=== PATIENT | male | born 1930 | race Caucasian/White ===

== ENCOUNTER 2016-10-07 11:46 | Inpatient (IN) | payer MEDICARE, OTHER ==
--- NOTE | 2016-10-07 14:06 | P.HPIM ---
History of Present Illness H&P Date: 10/07/16 Chief Complaint: Shortness of breath This is a 86-year-old male with a known past medical history of CVA, hypertension, chronic kidney disease, spinal stenosis, hyperlipidemia, hypothyroidism and BPH. Patient is a direct admit from Dr. Montenegro's office. Patient reports having worsening shortness of breath over the last 3 weeks. He noticed the shortness of breath with activity. He's also been having shortness of breath at rest. He reports that he is able to lay flat on his back. Also has episodes of chest pain in the center of his chest that lasts for a few minutes. The pain does not radiate. Patient reports that the chest pains and shortness of breath appeared to be separate. He denies any nausea or vomiting. Denies any diaphoresis. Denies any bowel movement changes or urinary symptoms. Denies any fevers chills or sweats. Denies any cough or cold-like symptoms. Due to the worsening shortness of breath and episodes of chest pains patient was admitted to the hospital for further evaluation and treatment. Chest x-ray, EKG, serial cardiac enzymes, d-dimer and BNP have been ordered. Patient denies any previous history of any congestive heart failure or COPD. Patient has no previous history of smoking. Denies any lower extremity edema. Patient is been currently admitted to the observation floor Review of Systems Please refer to HPI otherwise unremarkable Past Medical History Past Medical History: GERD/Reflux, Hearing Disorder / Deafness, Hypertension, Thyroid Disorder Additional Past Medical History / Comment(s): Chronic back pain with history of spinal stenosis, hyperlipidemia, hypothyroidism, BPH and CVA. Left rib contusion after fall from ladder about 3 months ago History of Any Multi-Drug Resistant Organisms: None Reported Past Surgical History: No Surgical Hx Reported Past Psychological History: No Psychological Hx Reported Smoking Status: Never smoker Past Alcohol Use History: Occasional Past Drug Use History: None Reported Medications and Allergies Home Medications Medication Instructions Recorded Confirmed Type Amitriptyline HCl [Elavil] 25 mg PO DAILY 01/31/14 01/31/14 History Aspirin 325 mg PO DAILY 01/31/14 02/03/14 History Atenolol [Tenormin] 25 mg PO DAILY 01/31/14 01/31/14 History Levothyroxine Sodium [Levoxyl] 25 mcg PO DAILY 01/31/14 01/31/14 History [place]-3 Fatty Acids [Riverdale-3] 1,000 mg PO DAILY 01/31/14 01/31/14 History Omeprazole 40 mg PO AC-BRKFST 01/31/14 01/31/14 History rOPINIRole HCL [Requip] 0.25 mg PO Q6H 01/31/14 02/01/14 History Allergies Allergy/AdvReac Type Severity Reaction Status Date / Time Sulfa (Sulfonamide Allergy Unknown Verified 01/31/14 21:06 Antibiotics) Physical Exam Head normocephalic Neck supple Lungs crackles left lower base Heart regular rate and rhythm S1-S2, no rub or gallop Abdomen is soft nontender nondistended positive bowel sounds no hepatosplenomegaly Extremities no edema Neuro alert and orientated to 3 Assessment and Plan Plan: 1. Shortness of breath exact etiology unclear. Check chest x-ray, d-dimer, BNP and cardiac enzymes. Start patient on Lovenox every 12 hours 2. Intermittent chest pains check serial troponin and EKG 3. Previous history of stroke continue aspirin and Plavix 4. Hypothyroidism resume her Synthroid 5. History of GERD we'll resume omeprazole 6. History of restless leg syndrome resume Requip 7. Essential hypertension resume Tenormin GI prophylaxis omeprazole and DVT prophylaxis Lovenox Time with Patient: Greater than 30 (Greater than 50% of the total time spent in counseling and coordination of care.I performed an examination of the patient and discussed their management with the physician Manager Hvac. I have reviewed the Physician Manager Hvac's notes and agree with the documented findings and plan of care)
--- NOTE | 2016-10-07 14:26 | XR ---
EXAMINATION TYPE: XR chest 2V DATE OF EXAM: 10/07/2016 2:18 PM COMPARISON: NONE HISTORY: Shortness of breath TECHNIQUE: Frontal and lateral views of the chest are obtained. FINDINGS: Scattered senescent parenchymal changes noted. Hyperinflation compatible with COPD. No evidence for infiltrate. No evidence for atelectasis. Heart size is enlarged. Mediastinal structures are stable and grossly unremarkable. No evidence for hilar prominence. Degenerative changes dorsal spine. IMPRESSION: 1. No evidence for acute pulmonary disease.
[2016-10-07 14:59] LABS: Basophils % (A) 0 %; CH 29.9; CHCM 32.6; Eosinophils % (A) 1 %; HCT 40.4 % (39.0-53.0); HDW 2.95; HGB 12.9 gm/dL (13.0-17.5); Luc # (Auto) 0.09; Luc % (Auto) 2; Lymphocytes % (A) 22 %; MCH 29.4 pg (25.0-35.0); MCHC 31.9 g/dL (31.0-37.0); Monocytes # (A) 0.2 k/uL (0-1.0); Monocytes % (A) 4 %; Neutrophils # (A) 3.4 k/uL (1.3-7.7); Neutrophils % (A) 71 %; RBC 4.39 m/uL (4.30-5.90); RDW 13.9 % (11.5-15.5); WBC 4.8 k/uL (3.8-10.6); WBC (Perox) 5.19
[2016-10-07 15:07] LABS: Calcium 9.4 mg/dL (8.4-10.2); Potassium 4.1 mmol/L (3.5-5.1); Total Bilirubin 1.3 mg/dL (0.2-1.3); Total Protein 6.7 g/dL (6.3-8.2)
[2016-10-07 16:40] LABS: Creatine Kinase MB 2.1 ng/mL (0.0-2.4); Troponin I 0.014 ng/mL (0.000-0.034)
[2016-10-07] MEDS: ENOXAPARIN 80 MG/0.8 ML SYRINGE SQ SCH ×2 (18:54→23:07)
[2016-10-07] MEDS: ATORVASTATIN 10 MG TAB PO SCH ×2 (19:33→20:25)
[2016-10-07 20:23] LABS: Creatine Kinase MB 1.7 ng/mL (0.0-2.4); Troponin I 0.02 ng/mL (0.000-0.034)
[2016-10-07] MEDS ORDERED: rOPINIRole HCL 4 MG TABLET PO ONE (23:00)
[2016-10-08 02:34] LABS: Basophils % (A) 0 %; CHCM 33.3; Eosinophils # (A) 0.1 k/uL (0-0.7); Eosinophils % (A) 1 %; HCT 36.8 % (39.0-53.0); HDW 2.99; HGB 11.9 gm/dL (13.0-17.5); Luc # (Auto) 0.08; Luc % (Auto) 2; Lymphocytes # (A) 1.2 k/uL (1.0-4.8); Lymphocytes % (A) 30 %; MCH 29.2 pg (25.0-35.0); MCHC 32.4 g/dL (31.0-37.0); MCV 90.4 fL (80.0-100.0); Mean Platelet Volume 8.9; Monocytes # (A) 0.3 k/uL (0-1.0); Monocytes % (A) 7 %; Neutrophils # (A) 2.3 k/uL (1.3-7.7); Neutrophils % (A) 59 %; RBC 4.07 m/uL (4.30-5.90); WBC 3.8 k/uL (3.8-10.6); WBC (Perox) 3.77
[2016-10-08 02:39] LABS: Potassium 4.1 mmol/L (3.5-5.1); Total Bilirubin 1.1 mg/dL (0.2-1.3); Total Protein 5.8 g/dL (6.3-8.2)
[2016-10-08 03:09] LABS: Creatine Kinase MB 1.9 ng/mL (0.0-2.4); Troponin I 0.015 ng/mL (0.000-0.034)
--- NOTE | 2016-10-08 08:31 | NM ---
EXAMINATION TYPE: NM pul vent and perfuse DATE OF EXAM: 10/07/2016 5:53 PM COMPARISON: NONE HISTORY: Shortness of breath. TECHNIQUE: Utilizing inhalation of 69.6 mCi Tc 99m DTPA aerosol and intravenous injection of 5.4 mCi of Tc 99m MAA, ventilation and perfusion images are acquired post injection in multiple projections. FINDINGS: Multiple non-wedge, nonsegmental matched defects are seen within both lungs, predominating within the mid upper lungs most compatible with underlying COPD. No mismatched defects are seen to suggest unde rlying pulmonary embolus. IMPRESSION: 1. Very low probability for PE. 2. Findings most compatible with COPD.
[2016-10-08] MEDS: ENOXAPARIN 80 MG/0.8 ML SYRINGE SQ SCH (08:46)
[2016-10-08] MEDS: PANTOPRAZOLE 40 MG TABLET PO SCH (08:47)
[2016-10-08] MEDS: CHOLECALCIFEROL 1,000 UNIT TAB PO SCH (08:47)
[2016-10-08] MEDS: AMITRIPTYLINE HCL 25 MG TAB PO SCH (08:47)
[2016-10-08] MEDS ORDERED: ATENOLOL 50 MG TAB PO SCH (09:00)
[2016-10-08] MEDS ORDERED: ASPIRIN 325 MG TAB PO SCH (09:00)
--- NOTE | 2016-10-08 10:06 | ECHOF ---
Referral Reason:check EF MEASUREMENTS -------- HEIGHT: 152.4 cm WEIGHT: 76.2 kg BP: 150/76 IVSd: 1.3 cm (0.6 - 1.1) LVIDd: 6.0 cm (3.9 - 5.3) LVPWd: 1.5 cm (0.6 - 1.1) IVSs: 1.4 cm LVIDs: 5.6 cm LVPWs: 1.4 cm LAESV Index (A-L): 42.25 ml/m Ao Diam: 3.7 cm (2.0 - 3.7) AV Cusp: 2.3 cm (1.5 - 2.6) LA Diam: 5.2 cm (2.7 - 3.8) MV EXCURSION: 14.837 mm (> 18.000) MV EF SLOPE: 73 mm/s (70 - 150) EPSS: 3.5 cm MV E Rob: 0.45 m/s MV DecT: 169 ms MV A Rob: 0.58 m/s MV E/A Ratio: 0.78 AR PHT: 450 ms RAP: 5.00 mmHg RVSP: 53.70 mmHg FINDINGS -------- Undetermined rhythm. This was a technically good study. The left ventricle is moderately dilated. Left ventricular wall thickness is normal. There is severe global hypokinesis of LV . Overall left ventricular systolic function is severely impaired with, an EF between 20 - 25 %. The right ventricle is normal in size. LA is severely dilated >40 ml/m2 The right atrial size is normal. There is mild aortic valve sclerosis. There is mild aortic regurgitation. Mild mitral annular calcification present. Moderate mitral regurgitation is present. Mild tricuspid regurgitation present. There is mild to moderate pulmonary hypertension. The right ventricular systolic pressure, as measured by Doppler, is 53.70mmHg. Trace/mild (physiologic) pulmonic regurgitation. The aortic root size is normal. There is no pericardial effusion. CONCLUSIONS -------- 1. The left ventricle is moderately dilated. 2. Mild tricuspid regurgitation present. 3. There is mild to moderate pulmonary hypertension. 4. The right ventricular systolic pressure, as measured by Doppler, is 53.70mmHg. 5. Trace/mild (physiologic) pulmonic regurgitation. 6. The aortic root size is normal. 7. There is no pericardial effusion. 8. Left ventricular wall thickness is normal. 9. There is severe global hypokinesis of LV . 10. Overall left ventricular systolic function is severely impaired with, an EF between 20 - 25 %. 11. LA is severely dilated >40 ml/m2 12. There is mild aortic valve sclerosis. 13. There is mild aortic regurgitation. 14. Mild mitral annular calcification present. 15. Moderate mitral regurgitation is present. STUDIO ENGINEER: Maryse Najera RDCS
[2016-10-08] MEDS ORDERED: REGADENOSON 0.4 MG/5 ML SYRINGE IV ONE (10:49)
[2016-10-08] MEDS ORDERED: AMINOPHYLLINE 500 MG/20 ML VIAL IV PRN (10:49)
[2016-10-08] MEDS ORDERED: NITROGLYCERIN SL TABS 0.4 MG TAB SUBLINGUAL PRN ×2 (11:22→13:12)
[2016-10-08] MEDS ORDERED: ASPIRIN 325 MG TAB PO STA (11:22)
[2016-10-08] MEDS ORDERED: ALPRAZolam 0.5 MG TAB PO PRN (11:22)
[2016-10-08] MEDS ORDERED: SODIUM CHLORIDE 0.9% 1,000 ML in EMPTY BAG 1 BAG IV ONE (11:22)
[2016-10-08] MEDS ORDERED: ATORVASTATIN 80 MG TAB PO STA (11:22)
[2016-10-08] MEDS ORDERED: ALPRAZolam 0.25 MG TAB PO PRN (11:22)
--- NOTE | 2016-10-08 11:24 | CONS ---
DATE OF CONSULTATION: Mr. Henning is an 86-year-old male patient who has been complaining of increased shortness of breath for the last 3 weeks or so. He does not describe any chest discomfort. He says that he gets short of breath when he walks around. His hemoglobin is 11.9. Electrolytes are normal. Kidney function is mildly reduced. His GFR is 45, creatinine is 1.5 and cardiac enzymes have been normal, but his BNP is elevated. He underwent a 2-D echo and Doppler today and it shows that his LV function is severely reduced with an ejection fraction of 20% to 25%. He underwent a perfusion imaging scan which showed low probability for pulmonary embolism. Past history of CVA, hypertension, chronic kidney disease, spinal stenosis, dyslipidemia and BPH. His medications include amitriptyline, aspirin, Tenormin, levothyroxine, omega-3 fatty acids, omeprazole and ropinirole. Allergies to SULFA. REVIEW OF SYSTEMS: No fever, chills, rigors. No cough or expectoration. No nausea, vomiting, or diarrhea. No hematuria or dysuria. No strokes or seizures. No skin lesions. No musculoskeletal complaints. On examination, his blood pressure is 185/87 mmHg, 150/76 mmHg, his heart rate is in the 50s and he is afebrile. Head and neck examination normal. No JVD, carotid bruits. Heart sounds S1 and S2 are normal. Lungs are clear to auscultation. Extremities are warm. No edema. No S3 gallop. No murmurs. IMPRESSION: Increasing shortness of breath for the last 3 weeks associated with increased BNP, severe left ventricular dysfunction, ejection fraction 20% to 25%, frequent premature ventricular contractions on 12-lead ECG with ST segment abnormalities. One ECG shows ST segment abnormalities in lead 4, 5 and V6, the other one does not. He does have chronic kidney disease, GFR 45 and a history of hypertension. SUGGEST: Medical management for cardiomyopathy and work up for coronary artery disease. Check TSH and a lipid panel.
[2016-10-08] MEDS ORDERED: LIDOCAINE 2% INJ 20 MG/ML (20 ML MDV) ONE (11:42)
[2016-10-08] MEDS ORDERED: MIDAZOLAM 2 MG/2 ML VIAL ONE (12:10)
[2016-10-08] MEDS ORDERED: diphenhydrAMINE 50 MG/ML 1 ML VIAL ONE (12:10)
[2016-10-08] MEDS ORDERED: diphenhydrAMINE 50 MG/ML 1 ML VIAL IVP ONE (12:12)
[2016-10-08] MEDS: MIDAZOLAM 2 MG/2 ML VIAL IV ONE ×2 (12:13→12:20)
[2016-10-08] MEDS ORDERED: LIDOCAINE 2% INJ 20 MG/ML SQ ONE (12:14)
[2016-10-08] MEDS: SODIUM CHLORIDE 0.9% 1,000 ML IV SCH (12:15)
[2016-10-08] MEDS ORDERED: NITROGLYCERIN OINT 1 INCH/GM PACKET TOPICAL ONE ×2 (12:19→12:21)
[2016-10-08] MEDS ORDERED: amLODIPine 5 MG TAB ONE (12:24)
[2016-10-08] MEDS ORDERED: amLODIPine 5 MG TAB PO ONE (12:26)
[2016-10-08] MEDS ORDERED: BIVALIRUDIN 250 MG in SODIUM CHLORIDE 0.9% 50 ML IV ONE (12:42)
[2016-10-08] MEDS ORDERED: BIVALIRUDIN BOLUS 250 MG/50 ML IV ONE (12:42)
[2016-10-08] MEDS ORDERED: CLOPIDOGREL 75 MG TAB ONE (12:43)
[2016-10-08] MEDS ORDERED: NITROGLYCERIN 1000MCG/10ML SYRINGE INTRACORON ONE (12:52)
[2016-10-08] MEDS ORDERED: CLOPIDOGREL 75 MG TAB PO ONE (12:52)
--- NOTE | 2016-10-08 12:56 | CC ---
DATE OF SERVICE: INDICATION: Unstable angina. This is an 86-year-old gentleman who presented to hospital with new onset shortness of breath at 3 weeks duration, had cardiomyopathy on the echocardiogram. He was advised to undergo cardiac catheterization, has renal insufficiency, understands the risk of contrast-induced nephropathy. PROCEDURE NOTE: After obtaining informed consent, left heart catheterization and coronary angiogram are performed via the right femoral artery using standard Pranay catheters. Patient tolerated the procedure well without any obvious immediate complications. FINDINGS: 1. HEMODYNAMICS: Left ventricular end-diastolic pressure is 24 mm. There is no significant gradient across the aortic valve. 2. LEFT VENTRICULOGRAM: Left ventriculogram is not performed. 3. ANGIOGRAPHIC DATA: LEFT MAIN CORONARY ARTERY: Left main coronary artery is a normal size vessel and is free of stenosis. It divides into left anterior descending coronary artery and circumflex coronary artery. Circumflex coronary artery and its branches are free of significant stenosis. LEFT ANTERIOR DESCENDING CORONARY ARTERY: LAD show a 95% stenosis in its mid-portion. There are actually segmental areas of stenosis, one past the first diag and second just before the second diag and the worst lesion is just before the second diag. Right coronary artery is a large dominant vessel and is free of significant stenosis. CONCLUSIONS: A 95% stenosis involving mid left anterior descending artery. PLAN: Patient will undergo angioplasty of LAD by Dr. Justin the on-call fleet maintenance manager.
[2016-10-08] MEDS ORDERED: IODIXANOL 320 MG/ML 100 ML INTRAARTER ONE (13:09)
[2016-10-08] MEDS ORDERED: ZOLPIDEM 5 MG TAB PO PRN (13:12)
[2016-10-08] MEDS ORDERED: MAG HYDROX/AL HYDROX/SIMETH 30 ML CUP PO PRN (13:12)
[2016-10-08] MEDS ORDERED: ATROPINE SULFATE 0.1 MG/ML 10ML SYRINGE IV PRN (13:12)
[2016-10-08] MEDS ORDERED: RX INFO: IV CONTRAST WAS GIVEN 1 EACH MISC MISCELLANE PRN (13:12)
[2016-10-08] MEDS ORDERED: SODIUM CHLORIDE 0.9% 1,000 ML IV SCH (13:15)
[2016-10-08] MEDS: hydrALAZINE HCL 25 MG TAB PO SCH ×2 (16:45→20:08)
[2016-10-08] MEDS: ISOSORBIDE MONONITRATE ER 30 MG TAB.ER.24H PO SCH (16:45)
[2016-10-08 17:17] LABS: Glucose,Whole Blood 89 mg/dL (75-99)
[2016-10-08] MEDS ORDERED: CARVEDILOL 3.125 MG TAB PO SCH (17:30)
[2016-10-08] MEDS: CARVEDILOL 6.25 MG TAB PO SCH (18:23)
--- NOTE | 2016-10-08 19:09 | P.PN ---
Subjective Principal diagnosis: Coronary Artery disease Patient is an 86 year old male admitted to [facility] with worsening shortness of breath D-dimer was slightly elevated, VQ scan was low probability for pulmonary embolism Cardiac enzymes were negative However echocardiogram revealed severely depressed ejection fraction was evidence of cardiomyopathy EF was in the range of 20% Patient was evaluated by cardiology and had cardiac catheterization today and had evidence of 95% stenosis of the LAD he underwent angioplasty and stent placement was Dr. Justin agent is doing well postoperatively. Objective - Vital Signs Vital signs: Vital Signs Temp 98.6 F 10/08/16 16:57 Pulse 67 10/08/16 16:57 Resp 16 10/08/16 16:57 BP 140/67 10/08/16 16:57 Pulse Ox 96 10/08/16 16:57 Intake & Output 10/08/16 10/08/16 10/09/16 06:59 18:59 06:59 Intake Total 250 208 Output Total 0 Balance 250 208 Weight 76.6 kg Intake: IV 88 Oral 250 120 Output: Urine 0 Other: Voiding Method Toilet Toilet # Voids 3 0 # Bowel Movements 0 - Exam HEENT head normocephalic and atraumatic Neck is supple no JVD no goiter no lymphadenopathy Chest is clear to auscultation no wheezing Cardiac exam reveals regular heart sounds no murmurs Abdomen is soft nontender no organomegaly Extremity exam reveals no edema no cyanosis or clubbing - Labs CBC & Chem 7: 10/08/16 02:13 10/08/16 02:13 Labs: Abnormal Lab Results - Last 24 Hours (Table) 10/07/16 10/08/16 10/08/16 Range/Units 19:32 02:13 02:13 RBC 4.07 L (4.30-5.90) m/uL Hgb 11.9 L (13.0-17.5) gm/dL Hct 36.8 L (39.0-53.0) % Plt Count 104 L (150-450) k/uL Chloride 109 H (98-107) mmol/L BUN 34 H (9-20) mg/dL Creatinine 1.50 H (0.66-1.25) mg/dL Glucose 102 H (74-99) mg/dL Total Creatine Kinase 42 L (55-170) U/L Total Protein 5.8 L (6.3-8.2) g/dL Albumin 3.2 L (3.5-5.0) g/dL 10/08/16 Range/Units 02:13 RBC (4.30-5.90) m/uL Hgb (13.0-17.5) gm/dL Hct (39.0-53.0) % Plt Count (150-450) k/uL Chloride (98-107) mmol/L BUN (9-20) mg/dL Creatinine (0.66-1.25) mg/dL Glucose (74-99) mg/dL Total Creatine Kinase 36 L (55-170) U/L Total Protein (6.3-8.2) g/dL Albumin (3.5-5.0) g/dL Assessment and Plan Plan: #1 coronary artery disease with evidence of 95% stenosis of the LAD status post angioplasty and stent placement #2 chronic kidney disease Will monitor BUN and creatinine closely #3 will follow during this admission
[2016-10-08] MEDS: ATORVASTATIN 80 MG TAB PO SCH (20:08)
[2016-10-08] MEDS ORDERED: ATORVASTATIN 40 MG TAB PO SCH (21:00)
--- NOTE | 2016-10-08 22:10 | PTCA ---
DATE OF SERVICE: Mr. Henning is an 86-year-old male with a history of hypertension and chronic kidney disease who presented with symptoms of progressive dyspnea and chest discomfort. He had an echocardiogram that revealed severely impaired left ventricular systolic function and underwent a cardiac catheterization that revealed a critical stenosis in 2 segments of the LAD. In view of that, recommendation was made regarding angioplasty and stenting. The procedure as well as risks and complications were discussed with the patient, who was in full understanding and agreement. PROCEDURE: Using a 6 Belgian EBU 3.75 guiding catheter, the left main was cannulated. Following that, a 0.014 balanced medium-weight J wire was advanced across the lesion, positioned distally. Then a 2.5 x 12 mm Trek balloon was advanced and 2 inflations at 8 atmospheres were done. Following that balloon was removed and a 2.5 x 33 mm Xience Alpine stent was deployed. It was post dilated at 14 atmospheres. Following that the balloon was removed and a 2.75 x 15 mm NC Trek balloon was advanced to the proximal segment of the stent, and 1 inflation at 14 atmospheres was done. After the last inflation, after appropriate wait, the balloon and the guidewire were withdrawn back into the guiding catheter. Images were obtained and repeated. Those images revealed stable successful stenting. At that point, the guiding catheter, the balloon and the guidewire were removed. The sheath was removed. Hemostasis was obtained with deployment of an Angio-Seal. There were no immediate complications. Patient was returned to his room in stable condition. Of note, patient had no chest discomfort or significant EKG changes with the inflations. He received Angiomax per protocol as well as oral loading dose of clopidogrel. RESULT: Successful stenting of the long segment of the mid left anterior descending with reduction in stenosis from 90% to 0%. RECOMMENDATION: Patient will be continued on aspirin, Plavix, beta kevon and statin. The importance of dual antiplatelet treatment was discussed with the patient and his family, who are in full understanding and agreement.
--- NOTE | 2016-10-08 22:18 | LTR ---
October 08, 2016 RE: JuvencioKaleb Dear Dr. Montenegro, I had the pleasure of performing coronary angioplasty and stenting on Mr. Henning at [facility] on October 08, and a full copy of the procedure note will be forwarded to you. In brief, he underwent successful stenting of the mid LAD in a long segment using a drug-eluting stent. I am hopeful that this procedure will stabilize his status and that we will see an improvement in his systolic function. I will keep you updated on his progress. Thank you again for allowing me to participate in his care. Please feel to call with any questions. Sincerely, CHARISMA BORRERO MD
[2016-10-09 06:21] LABS: Basophils % (A) 0 %; CH 29.9; CHCM 32.8; Eosinophils # (A) 0.1 k/uL (0-0.7); Eosinophils % (A) 1 %; HCT 42.8 % (39.0-53.0); HGB 13.8 gm/dL (13.0-17.5); Luc # (Auto) 0.09; Luc % (Auto) 2; Lymphocytes # (A) 0.9 k/uL (1.0-4.8); Lymphocytes % (A) 17 %; MCH 29.5 pg (25.0-35.0); MCHC 32.3 g/dL (31.0-37.0); MCV 91.5 fL (80.0-100.0); Mean Platelet Volume 8.3; Monocytes # (A) 0.3 k/uL (0-1.0); Monocytes % (A) 6 %; Neutrophils # (A) 3.8 k/uL (1.3-7.7); Neutrophils % (A) 74 %; RBC 4.68 m/uL (4.30-5.90); RDW 13.8 % (11.5-15.5); WBC 5.2 k/uL (3.8-10.6); WBC (Perox) 5.71
[2016-10-09] MEDS: PANTOPRAZOLE 40 MG TABLET PO SCH (06:39)
[2016-10-09] MEDS: CARVEDILOL 6.25 MG TAB PO SCH ×2 (06:40→17:32)
[2016-10-09] MEDS: SODIUM CHLORIDE 0.9% 1,000 ML IV SCH (06:41)
[2016-10-09 07:05] LABS: Calcium 9.2 mg/dL (8.4-10.2); Potassium 4.1 mmol/L (3.5-5.1); Total Bilirubin 2.4 mg/dL (0.2-1.3); Total Protein 6.8 g/dL (6.3-8.2)
[2016-10-09] MEDS: ISOSORBIDE MONONITRATE ER 30 MG TAB.ER.24H PO SCH (08:58)
[2016-10-09] MEDS: ASPIRIN 81 MG CHEW PO SCH (08:58)
[2016-10-09] MEDS: hydrALAZINE HCL 25 MG TAB PO SCH ×2 (08:59→20:27)
[2016-10-09] MEDS: CHOLECALCIFEROL 1,000 UNIT TAB PO SCH (08:59)
[2016-10-09] MEDS: AMITRIPTYLINE HCL 25 MG TAB PO SCH (08:59)
[2016-10-09] MEDS: CLOPIDOGREL 75 MG TAB PO SCH (08:59)
--- NOTE | 2016-10-09 13:51 | P.PN ---
Subjective Principal diagnosis: Coronary Artery disease Patient is an 86 year old male admitted to [facility] with worsening shortness of breath D-dimer was slightly elevated, VQ scan was low probability for pulmonary embolism Cardiac enzymes were negative However echocardiogram revealed severely depressed ejection fraction was evidence of cardiomyopathy EF was in the range of 20% Patient was evaluated by cardiology and had cardiac catheterization today and had evidence of 95% stenosis of the LAD he underwent angioplasty and stent placement was Dr. Justin agent is doing well postoperatively. Objective - Vital Signs Vital signs: Vital Signs Temp 97.0 F L 10/09/16 08:00 Pulse 62 10/09/16 08:00 Resp 16 10/09/16 08:00 BP 138/72 10/09/16 08:00 Pulse Ox 97 10/09/16 08:00 Intake & Output 10/08/16 10/09/16 10/09/16 18:59 06:59 18:59 Intake Total 089 944 8419 Output Total 0 200 Balance 208 -80 1066 Weight 76.6 kg 76.6 kg Intake: IV 88 Intake, IV Titration 150 Amount Sodium Chloride 0.9% 1, 150 000 ml @ 75 mls/hr IV . [id number] [facility] Rx#:[id number] Oral 120 120 916 Output: Urine 0 200 Other: Voiding Method Toilet Toilet Toilet # Voids 0 1 # Bowel Movements 0 0 - Exam HEENT head normocephalic and atraumatic Neck is supple no JVD no goiter no lymphadenopathy Chest is clear to auscultation no wheezing Cardiac exam reveals regular heart sounds no murmurs Abdomen is soft nontender no organomegaly Extremity exam reveals no edema no cyanosis or clubbing - Labs CBC & Chem 7: 10/09/16 05:36 10/09/16 05:36 Labs: Abnormal Lab Results - Last 24 Hours (Table) 10/09/16 10/09/16 Range/Units 05:36 05:36 Plt Count 124 L (150-450) k/uL Lymphocytes # 0.9 L (1.0-4.8) k/uL BUN 27 H (9-20) mg/dL Creatinine 1.40 H (0.66-1.25) mg/dL Glucose 114 H (74-99) mg/dL Total Bilirubin 2.4 H (0.2-1.3) mg/dL Assessment and Plan Plan: #1 coronary artery disease with evidence of 95% stenosis of the LAD status post angioplasty and stent placement #2 chronic kidney disease Will monitor BUN and creatinine closely #3 will follow during this admission, as discussed was cardiology, plan for discharge to home on Friday per cardiology recommendation
--- NOTE | 2016-10-09 14:21 | P.PN ---
Subjective Principal diagnosis: Shortness of breath This is a pleasant 86-year-old gentleman primarily admitted to the hospital with symptoms of shortness of breath for 3 week duration. He denied any overt chest discomfort. Patient had an echo cardiac exam with Doppler study performed which revealed any LV function of 20-25%. Subsequent to that patient underwent a cardiac catheterization where he was found to have a 95% stenosis involving the mid LAD. Subsequent to that he underwent angioplasty with stent placement of that vessel. He was seen and examined this morning, denied any chest pain, breathing was stable. I pressure 138/70, heart rate in the 60s. Hemoglobin 13.8, platelet count 124, BUN 27, creatinine 1.4. We will add losartan to the patient's medication regime today. Continue to monitor for 48 hours. Objective - Vital Signs Vital signs: Vital Signs Temp 97.0 F L 10/09/16 08:00 Pulse 62 10/09/16 08:00 Resp 16 10/09/16 08:00 BP 138/72 10/09/16 08:00 Pulse Ox 97 10/09/16 08:00 Intake & Output 10/08/16 10/09/16 10/09/16 18:59 06:59 18:59 Intake Total 615 119 3624 Output Total 0 200 Balance 208 -80 1066 Weight 76.6 kg 76.6 kg Intake: IV 88 Intake, IV Titration 150 Amount Sodium Chloride 0.9% 1, 150 000 ml @ 75 mls/hr IV . [id number] [facility] Rx#:[id number] Oral 120 120 916 Output: Urine 0 200 Other: Voiding Method Toilet Toilet Toilet # Voids 0 1 # Bowel Movements 0 0 - Exam PHYSICAL EXAMINATION: HEENT: Head is atraumatic, normocephalic. Pupils equal, round. Neck is supple. There is no elevated jugular venous pressure. HEART EXAMINATION: Heart S1, S2 normal. No murmur or gallop heard. CHEST EXAMINATION: Lungs are clear to auscultation and precussion. No chest wall tenderness is noted on palpation or with deep breathing. ABDOMEN: Soft, nontender. Bowel sounds are heard. No organomegaly noted. Right groin soft, no evidence of any hematoma. EXTREMITIES: 2+ peripheral pulses with no evidence of peripheral edema and no calf tenderness noted. NEUROLOGIC patient is awake, alert and oriented -3. . - Labs CBC & Chem 7: 10/09/16 05:36 10/09/16 05:36 Labs: Abnormal Lab Results - Last 24 Hours (Table) 10/09/16 10/09/16 Range/Units 05:36 05:36 Plt Count 124 L (150-450) k/uL Lymphocytes # 0.9 L (1.0-4.8) k/uL BUN 27 H (9-20) mg/dL Creatinine 1.40 H (0.66-1.25) mg/dL Glucose 114 H (74-99) mg/dL Total Bilirubin 2.4 H (0.2-1.3) mg/dL Assessment and Plan (1) SOB (shortness of breath) Status: Acute (2) Presence of stent in LAD coronary artery Status: Acute (3) Renal insufficiency Status: Acute (4) Ischemic cardiomyopathy Status: Acute (5) Hyperlipemia Status: Acute (6) HTN (hypertension) Status: Acute Plan: From cardiology's perspective, we'll continue current medications. We will also add losartan to the medication regime. Continue to monitor for 48 hours. Increase activity as tolerated. DNP note has been reviewed, I agree with a documented findings and plan of care. Patient was seen and examined.
--- NOTE | 2016-10-09 14:37 | CDI ---
In responding to this query, please exercise your independent professional judgment. The [facility] Coding Staff and Clinical Documentation Specialists appreciate your assistance in clarifying documentation, maintaining compliance with coding guidelines, accurately documenting patients condition and capturing severity of illness. The fact that a question is asked does not imply that any particular answer is desired or expected. Communication forms are a method of clarifying documentation and are not made part of the Legal Health Record. Thank you in advance for your clarification. Last Revision, July 2015 Umang Levin [address] [place] [address] Documentation Clarification Form Date: 10/09/2016 2:29:00 PM From: Dina Blancas CCS, CCDS Admit Date: 10/08/2016 11:08:00 AM Patient Name: Kaleb Henning Visit Number: [id number] Discharge Date: Dr. Donnie Montenegro: History/Risk Factors: 86 yo male, admitted w/CAD status post Left Heart Catheterization & PTCA w/stent to mid LAD, also history of cardiomyopathy, hypertension & documented CKD, nos. Current BUN: 33 - 27; Cr 1.60 - 1.40; GFR 41 - 48 Treatment: Cardiology consult & cardiac intervention. IV fluids, Lovenox sc, Aspirin, Nitro sl. In order to capture the severity of condition, please clarify if the condition signifies: CKD Stage 1 (GFR > 90) CKD Stage 2 (GFR 60-89) CKD Stage 3 (GFR 30-59) CKD Stage 4 (GFR 15-29) CKD Stage 5 (GFR <15) ESRD Unable to determine Other condition, please specify Please document in your progress notes and discharge summary in order to capture severity of illness and risk of mortality. Include clinical findings that support your diagnosis. FYI: Press F11 to launch patient chart. Place X here if this finding has no clinical significance, is not applicable or if you are not able to provide any additional documentation. Thank You. RIKA
[2016-10-09] MEDS: ATORVASTATIN 80 MG TAB PO SCH (20:27)
[2016-10-10 06:37] LABS: Basophils % (A) 0 %; CHCM 33.3; Eosinophils # (A) 0.1 k/uL (0-0.7); Eosinophils % (A) 2 %; HCT 37.9 % (39.0-53.0); HDW 2.98; HGB 12.4 gm/dL (13.0-17.5); Luc # (Auto) 0.08; Luc % (Auto) 2; Lymphocytes % (A) 22 %; MCH 29.8 pg (25.0-35.0); MCHC 32.8 g/dL (31.0-37.0); MCV 90.6 fL (80.0-100.0); Mean Platelet Volume 8.3; Monocytes # (A) 0.3 k/uL (0-1.0); Monocytes % (A) 6 %; Neutrophils # (A) 3.1 k/uL (1.3-7.7); Neutrophils % (A) 69 %; RBC 4.18 m/uL (4.30-5.90); RDW 13.9 % (11.5-15.5); WBC 4.5 k/uL (3.8-10.6); WBC (Perox) 4.79
[2016-10-10] MEDS: PANTOPRAZOLE 40 MG TABLET PO SCH (06:43)
[2016-10-10] MEDS: CARVEDILOL 6.25 MG TAB PO SCH (06:43)
[2016-10-10 06:46] LABS: Potassium 4.4 mmol/L (3.5-5.1); Total Protein 6.1 g/dL (6.3-8.2)
[2016-10-10 06:53] LABS: Manual Review Performed
[2016-10-10] MEDS ORDERED: LOSARTAN 25 MG TAB PO SCH (09:00)
[2016-10-10] MEDS: CHOLECALCIFEROL 1,000 UNIT TAB PO SCH (09:38)
[2016-10-10] MEDS: ASPIRIN 81 MG CHEW PO SCH (09:38)
[2016-10-10] MEDS: AMITRIPTYLINE HCL 25 MG TAB PO SCH (09:38)
[2016-10-10] MEDS: hydrALAZINE HCL 25 MG TAB PO SCH (09:39)
[2016-10-10] MEDS: ISOSORBIDE MONONITRATE ER 30 MG TAB.ER.24H PO SCH (09:39)
[2016-10-10] MEDS: CLOPIDOGREL 75 MG TAB PO SCH (09:39)
[2016-10-10 11:29] VITALS: RESP 18
--- NOTE | 2016-10-10 11:45 | P.DS ---
Providers Date of admission: 10/08/16 11:08 Expected date of discharge: 10/10/16 Attending physician: Donnie Montenegro Consults: 10/07/16 15:51 Consult Physician Routine Consulting Provider: Rolf Cadena Consult Reason/Comments: shortness of breath Do you want consulting provider notified?: Yes 10/08/16 13:12 Consult Physician Routine Consulting Provider: [facility] Consult Reason/Comments: Post Interventional patient Do you want consulting provider notified?: Already Contacted Primary care physician: Donnie Montenegro [facility] Course: Discharge diagnosis #1 coronary artery disease with evidence of 95% stenosis of the LAD status post angioplasty and stent placement. #2 chronic kidney disease stage III #3 essential hypertension #4 intermittent chest pains on admission now resolved. [place] ruled out #5 hypothyroidism #6 essential hypertension #7 restless legs syndrome #8 ischemic cardiomyopathy with an ejection fraction of 20% #9 shortness of breath secondary to ischemic cardiomyopathy and coronary artery disease requiring stent and angioplasty to the LAD Hospital course This is a 86-year-old male who was instructed from Dr. Montenegro's office for shortness of breath and intermittent episodes of chest pain. He is slightly elevated d-dimer with VQ scan showing a low probability of PE. Cardiac enzymes were negative. Echo had shown a severely depressed ejection fraction of 20% with evidence of cardiomyopathy. Patient was seen evaluated by cardiology and underwent heart catheterization with evidence of 95% stenosis to the LAD in which he had angioplasty and stent placement. Patient's symptoms have improved , he is no longer short of breath. He has been up and ambulating without difficulty. Patient will be evaluated by cardiology and they've cleared by cardiology will be discharged home today. Cardiology did add aspirin, Plavix, Lipitor, Coreg, losartan, indoor and hydralazine. Patient will follow-up with cardiology and Dr. Dr. Montenegro in the office in one week. Patient Condition at Discharge: Stable Plan - Discharge Summary New Discharge Prescriptions: Aspirin 81 mg PO DAILY #30 chew Atorvastatin [Lipitor] 80 mg PO HS #30 tab Carvedilol [Coreg] 6.25 mg PO BID-W/MEALS #60 tab Clopidogrel [Plavix] 75 mg PO DAILY #30 tab Isosorbide Mononitrate ER [Imdur] 30 mg PO DAILY #30 tab.er.24h Losartan [Cozaar] 25 mg PO DAILY #30 tab hydrALAZINE HCL [Apresoline] 25 mg PO BID #60 tab Discharge Medication List Amitriptyline HCl [Elavil] 25 mg PO DAILY 01/31/14 [History] Omeprazole 40 mg PO AC-BRKFST 01/31/14 [History] rOPINIRole HCL [Requip] 2 mg PO Q6H 01/31/14 [History] Cholecalciferol [Vitamin D3] 2,000 unit PO DAILY 10/07/16 [History] Aspirin 81 mg PO DAILY #30 chew 10/10/16 [Rx] Atorvastatin [Lipitor] 80 mg PO HS #30 tab 10/10/16 [Rx] Carvedilol [Coreg] 6.25 mg PO BID-W/MEALS #60 tab 10/10/16 [Rx] Clopidogrel [Plavix] 75 mg PO DAILY #30 tab 10/10/16 [Rx] Isosorbide Mononitrate ER [Imdur] 30 mg PO DAILY #30 tab.er.24h 10/10/16 [Rx] Losartan [Cozaar] 25 mg PO DAILY #30 tab 10/10/16 [Rx] hydrALAZINE HCL [Apresoline] 25 mg PO BID #60 tab 10/10/16 [Rx] Follow up Appointment(s)/Referral(s): Rolf Cadena MD [STAFF PHYSICIAN] - 1 Week Donnie Montenegro MD [Primary Care Provider] - 1 Week Activity/Diet/Wound Care/Special Instructions: Diet: cardiac Activity: as tolerated Discharge Disposition: HOME SELF-CARE
--- NOTE | 2016-10-10 11:47 | P.PN ---
Subjective Principal diagnosis: Shortness of breath This is a pleasant 86-year-old gentleman primarily admitted to the hospital with symptoms of shortness of breath for 3 week duration. He denied any overt chest discomfort. Patient had an echo cardiac exam with Doppler study performed which revealed any LV function of 20-25%. Subsequent to that patient underwent a cardiac catheterization where he was found to have a 95% stenosis involving the mid LAD. Subsequent to that he underwent angioplasty with stent placement of that vessel. He was seen and examined this morning, denied any chest pain, breathing was stable. Blood pressure 155/67, heart rate in the 60s. Hemoglobin 12.4, platelet count 93, BUN 30, creatinine 1.5. Occasional PVC noted on the monitor. Patient is feeling well, up ambulating without any difficulty, denies chest pain or difficulty in breathing. Objective - Vital Signs Vital signs: Vital Signs Temp 97.9 F 10/10/16 09:35 Pulse 65 10/10/16 09:35 Resp 18 10/10/16 09:35 BP 155/67 10/10/16 09:35 Pulse Ox 94 L 10/10/16 09:35 Intake & Output 10/09/16 10/10/16 10/10/16 18:59 06:59 18:59 Intake Total 1366 500 120 Balance 1366 500 120 Intake: Intake, IV Titration 450 Amount Sodium Chloride 0.9% 1, 450 000 ml @ 75 mls/hr IV . [id number] [facility] Rx#:[id number] Oral 916 500 120 Other: Voiding Method Toilet Toilet Toilet # Voids 1 2 # Bowel Movements 0 - Exam PHYSICAL EXAMINATION: HEENT: Head is atraumatic, normocephalic. Pupils equal, round. Neck is supple. There is no elevated jugular venous pressure. HEART EXAMINATION: Heart S1, S2 normal. No murmur or gallop heard. CHEST EXAMINATION: Lungs are clear to auscultation and precussion. No chest wall tenderness is noted on palpation or with deep breathing. ABDOMEN: Soft, nontender. Bowel sounds are heard. No organomegaly noted. Right groin soft, no evidence of any hematoma. EXTREMITIES: 2+ peripheral pulses with no evidence of peripheral edema and no calf tenderness noted. NEUROLOGIC patient is awake, alert and oriented -3. . - Labs CBC & Chem 7: 10/10/16 06:09 10/10/16 06:09 Labs: Abnormal Lab Results - Last 24 Hours (Table) 10/10/16 10/10/16 Range/Units 06:09 06:09 RBC 4.18 L (4.30-5.90) m/uL Hgb 12.4 L (13.0-17.5) gm/dL Hct 37.9 L (39.0-53.0) % Plt Count 93 L (150-450) k/uL BUN 30 H (9-20) mg/dL Creatinine 1.50 H (0.66-1.25) mg/dL Glucose 104 H (74-99) mg/dL Total Bilirubin 2.0 H (0.2-1.3) mg/dL AST 16 L (17-59) U/L Total Protein 6.1 L (6.3-8.2) g/dL Albumin 3.2 L (3.5-5.0) g/dL Assessment and Plan (1) SOB (shortness of breath) Status: Acute (2) Presence of stent in LAD coronary artery Status: Acute (3) Renal insufficiency Status: Acute (4) Ischemic cardiomyopathy Status: Acute (5) Hyperlipemia Status: Acute (6) HTN (hypertension) Status: Acute Plan: From cardiology's perspective, we'll continue current medications. Patient may be able to be discharged home today from cardiology's perspective. We will make a follow-up appointment with Dr. Cadena in the office. Obtain lytes BUN and creatinine in one week. Patient will be discharged home on aspirin 81 mg daily, Lipitor 80 mg daily, Corex 6.25 mg twice a day, Plavix 75 mg daily, losartan 25 mg daily, hydralazine 25 mg one tablet by mouth twice a day, and sublingual nitroglycerin as needed for chest pain. DNP note has been reviewed, I agree with a documented findings and plan of care. Patient was seen and examined.
[2016-10-10 13:53] VITALS: BP 124/72; PULSE 68; TEMP 98.1
--- NOTE | 2016-10-10 14:21 | P.PN ---
Progress Note - Text Update. Please see Dr. jacobsen's note for details Impression Severe cardiomyopathy , predominantly ischemic, left radical ejection fraction 20-25% CAD, critical stenosis in 2 segments of the LAD Drug-eluting stent Initially frequent PVCs, reduced after stenting Chronic kidney disease GFR 45 Hypertension TSH 2.9 HDL 35, LDL 104, total cholesterol 157, triglycerides 90 Plan Management of ischemic cardio myopathy Stop amitriptyline Stop hydralazine Stop Imdur Atorvastatin 80 mg a day Carvedilol 12.5 mg twice daily Losartan 25 mg daily Aspirin and Plavix Follow-up Holter monitor in the future Reassessment of LV function in 6-12 weeks
== END 2016-10-10 14:11 | disposition home or self-care (01) | DRG 247 ==
LOC: 3OBS 13:14 → OBSVTOIN 10-08 11:08 → 6SEL 10-08 13:19
PROVIDERS: ADMIT Internal Medicine; ATTEND Internal Medicine
PROC: B2111ZZ Fluoroscopy of Multiple Coronary Arteries using Low Osmolar Contrast (ICD-10-PCS; 2016-10-08)
PROC: B2151ZZ Fluoroscopy of Left Heart using Low Osmolar Contrast (ICD-10-PCS; 2016-10-08)
PROC: 027034Z Dilation of Coronary Artery, One Artery with Drug-eluting Intraluminal Device, Percutaneous Approach (ICD-10-PCS; principal; 2016-10-08 12:00)
PROC: 4A023N7 Measurement of Cardiac Sampling and Pressure, Left Heart, Percutaneous Approach (ICD-10-PCS; 2016-10-08 12:00)
DX: I25.110 Atherosclerotic heart disease of native coronary artery with unstable angina pectoris (principal); I25.5 Ischemic cardiomyopathy; N18.3 Chronic kidney disease, stage 3 (moderate); I12.9 Hypertensive chronic kidney disease with stage 1 through stage 4 chronic kidney disease, or unspecified chronic kidney disease; E78.5 Hyperlipidemia, unspecified; R94.31 Abnormal electrocardiogram [ECG] [EKG]; E03.9 Hypothyroidism, unspecified; G25.81 Restless legs syndrome; K21.9 Gastro-esophageal reflux disease without esophagitis; N40.0 Benign prostatic hyperplasia without lower urinary tract symptoms; H91.90 Unspecified hearing loss, unspecified ear; R06.02 Shortness of breath; G89.29 Other chronic pain; M48.00 Spinal stenosis, site unspecified; I49.3 Ventricular premature depolarization; Z91.81 History of falling; Z87.828 Personal history of other (healed) physical injury and trauma; Z86.73 Personal history of transient ischemic attack (TIA), and cerebral infarction without residual deficits; Z88.2 Allergy status to sulfonamides; Z79.82 Long term (current) use of aspirin; Z79.899 Other long term (current) drug therapy
CPT/HCPCS: 71020; 78582; 80053; 82550; 82553; 83880; 84443; 84484; 85025; 85379; 93005; 93306; 93458

== ENCOUNTER 2017-01-13 11:22 | Day surgery (SDC) | payer MEDICARE, OTHER ==
[2017-01-09 12:19] VITALS: BMI 23.2
[~2017-01-13 11:22] MED LIST: HYDROmorphone 1 MG/ML 1 ML SYRINGE IVP PRN; LACTATED RINGERS 1,000 ML IV SCH; MIDAZOLAM 2 MG/2 ML VIAL IV PRN; SODIUM CHLORIDE 0.9% 1,000 ML IV SCH; ceFAZolin 1,000 MG in SODIUM CHLORIDE 0.9% IRRIGATIO 250 ML IRRIGATION ONE; ceFAZolin 2 GM in SODIUM CHLORIDE 0.9% 100 ML IVPB ONE
[2017-01-13 12:02] LABS: Basophils % (A) 0 %; CH 31.5; CHCM 34.3; Eosinophils # (A) 0.1 k/uL (0-0.7); Eosinophils % (A) 2 %; HCT 35.2 % (39.0-53.0); HDW 2.86; HGB 12.1 gm/dL (13.0-17.5); Luc % (Auto) 2; Lymphocytes # (A) 1.4 k/uL (1.0-4.8); Lymphocytes % (A) 34 %; MCH 31.7 pg (25.0-35.0); MCHC 34.3 g/dL (31.0-37.0); MCV 92.5 fL (80.0-100.0); Mean Platelet Volume 8.2; Monocytes # (A) 0.3 k/uL (0-1.0); Monocytes % (A) 6 %; Neutrophils # (A) 2.3 k/uL (1.3-7.7); Neutrophils % (A) 55 %; RDW 14.4 % (11.5-15.5); WBC 4.2 k/uL (3.8-10.6); WBC (Perox) 4.28
[2017-01-13] MEDS ORDERED: SODIUM CHLORIDE 0.9% 1,000 ML IV ONE (12:06)
[2017-01-13 12:12] LABS: Calcium 9.1 mg/dL (8.4-10.2); Potassium 4.3 mmol/L (3.5-5.1)
[2017-01-13] MEDS ORDERED: MIDAZOLAM 2 MG/2 ML VIAL ONE (14:33)
[2017-01-13] MEDS ORDERED: PROPOFOL 10 MG/ML 20 ML VIAL IV ONE (14:33)
[2017-01-13] MEDS ORDERED: IOHEXOL 300 MG/ML 50 ML BOTTLE IV ONE (14:50)
[2017-01-13] MEDS ORDERED: LIDOCAINE 2% INJ 20 MG/ML SQ ONE ×2 (15:08→15:11)
--- NOTE | 2017-01-13 16:12 | P.HPCAR ---
History of Present Illness 86-year-old male patient with ischemic cardiomyopathy, congestive heart failure and nonsustained ventricular tachycardia, coronary artery disease status post stenting LAD. Left ventricular ejection fraction 30% after revascularization and medical treatment chronotropic incompetence Sick Sinus Syndrome AV node disease AV block with pacing and 90 beats a minute Dual-chamber ICD for primary prevention of sudden cardiac and management of conduction system disease Continue medical treatment Physical Exam Vitals: Vital Signs Temp Pulse BP BP 01/13/17 12:07 97.2 F L 61 168/91 165/78 Intake and Output 01/13/17 01/13/17 01/13/17 06:59 14:59 22:59 Intake Total 50 100 Balance 50 100 Intake: IV 50 100 Past Medical History Past Medical History: GERD/Reflux, Hearing Disorder / Deafness, Osteoarthritis ( OA), Renal Disease, Thyroid Disorder Additional Past Medical History / Comment(s): Chronic back pain with history of spinal stenosis, bilateral feet pain, 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 Smoking Status: Never smoker Past Alcohol Use History: None Reported Past Drug Use History: None Reported - Past Family History Father Family Medical History: Deep Vein Thrombosis (DVT) Additional Family Medical History / Comment(s): Father was an alcoholic. Mother Family Medical History: Congestive Heart Failure (CHF) Additional Family Medical History / Comment(s): Mother had depression. Physical Examination Vital Signs Temp Pulse BP BP 01/13/17 12:07 97.2 F L 61 168/91 165/78 Intake and Output 01/13/17 01/13/17 01/13/17 06:59 14:59 22:59 Intake Total 50 100 Balance 50 100 Intake: IV 50 100 Results 01/13/17 11:45 01/13/17 11:45 CBC 01/13/17 Range/Units 11:45 WBC 4.2 (3.8-10.6) k/uL RBC 3.80 L (4.30-5.90) m/uL Hgb 12.1 L (13.0-17.5) gm/dL Hct 35.2 L (39.0-53.0) % Plt Count 106 L (150-450) k/uL Comprehensive Metabolic Panel 01/13/17 Range/Units 11:45 Sodium 139 (137-145) mmol/L Potassium 4.3 (3.5-5.1) mmol/L Chloride 106 (98-107) mmol/L Carbon Dioxide 25 (22-30) mmol/L BUN 34 H (9-20) mg/dL Creatinine 1.55 H (0.66-1.25) mg/dL Glucose 98 (74-99) mg/dL Calcium 9.1 (8.4-10.2) mg/dL Current Medications Generic Name Dose Route Start Last Admin Trade Name Freq PRN Reason Stop Dose Admin Hydromorphone HCl 0.5 mg 01/13/17 06:53 Dilaudid IVP 01/14/17 06:54 Q5M PRN Pain Control Sodium Chloride 1,000 mls @ 20 mls/hr 01/13/17 06:53 Saline 0.9% IV .Q24H KELVIN Lactated Ringer's 1,000 mls @ 20 mls/hr 01/13/17 06:53 Lactated Ringers IV .Q24H KELVIN Midazolam HCl 2 mg 01/13/17 06:53 Versed IV 01/14/17 06:54 ONCE PRN Anxiety Intake and Output 01/13/17 01/13/17 01/13/17 06:59 14:59 22:59 Intake Total 50 100 Balance 50 100 Intake: IV 50 100 01/13/17 11:45 01/13/17 11:45
[2017-01-13] MEDS ORDERED: HYDROcodone/APAP 5-325MG 1 EACH TAB PO PRN (16:25)
[2017-01-13] MEDS ORDERED: ACETAMINOPHEN TAB 325 MG TAB PO PRN (16:25)
[2017-01-13] MEDS ORDERED: ACETAMINOPHEN IV (For NPO) 1,000 MG in EMPTY BAG 1 BAG IVPB ONE (16:25)
--- NOTE | 2017-01-13 16:35 | PCN ---
DATE OF PROCEDURE: 01/13/2017 Mr. Henning is an 87-year-old male patient with severe ischemic cardiomyopathy, non-sustained ventricular tachycardia, coronary artery disease, status post coronary stenting several months back, on medical treatment. Ejection fraction is still 30%. He has non-sustained ventricular tachycardia, sick sinus syndrome, AV node disease. He underwent dual-chamber ICD implantation for prevention of sudden cardiac and management of chronotropic incompetence and AV node disease. Patient was brought to the EP lab in a fasting state. Written informed consent was obtained prior to the procedure. The left shoulder area was prepped and draped as per protocol. Lidocaine 1% was used for local anesthesia. A 4 cm incision was made parallel to the deltopectoral groove about 1.5 cm medial to it. The incision was carried down to the level of the pectoralis muscle. A subfascial pocket was made. Hemostasis was assured. The left axillary vein was accessed at 2 separate points under fluoroscopy and via appropriate-sized introducer sheaths, 2 leads were positioned in the right heart. The atrial lead was a [address] [employer], model #1944, serial number [id number]. The ICD lead was a single-coil [employer], model #7122Q, 58 cm in length, and serial #[id number]. This was screwed in the RV septum. The atrial lead was a tined lead positioned in the right atrial appendage. The P waves were 2.9 mV, R waves 11.4 mV. Pacing impedance in the RV was 580 ohms. Pacing impedance in the RA was 450 ohms. Pacing threshold was 0.5 v at 0.5 ms in both the atrium and the ventricle. Ten-volt test was negative for both leads. The leads were then connected to the underlying pectoralis fascia using 2 non-absorbable sutures. Pocket was irrigated with antibiotic solution. Leads were connected with the generator ([employer], model number [id number], serial #[id number]). Leads and the generator were then placed in the subfascial pocket. The wound was closed in 3 layers and dressed per protocol. RESULT: Successful dual-chamber ICD implantation for primary prevention of sudden cardiac and management of conduction system disease. PLAN: Continue current cardiac and heart failure medications.
--- NOTE | 2017-01-13 17:09 | PCN ---
DATE OF PROCEDURE: DFT TESTING Mr. Henning is post dual-chamber ICD implantation. DC fib shock was used to induce ventricular fibrillation. This was adequately and appropriately detected at least sensitivity and successfully internally defibrillated with a 10-joule shock, high voltage impedance 57 ohms, charge time 1.9 seconds. No post-shock noise. Two dropouts at least sensitivity. The device was then programmed to the MADIT-RIT programming with appropriate anti-tachycardia pacing, cardioversion and defibrillation in a 3 tachy zone. Pacing at DDD 50.
[2017-01-13 17:50] VITALS: RESP 16
[2017-01-13] MEDS: CARVEDILOL 12.5 MG TAB PO SCH (18:15)
[2017-01-13] MEDS ORDERED: CARVEDILOL 6.25 MG TAB PO SCH (21:00)
[2017-01-13] MEDS: ceFAZolin 2 GM in SODIUM CHLORIDE 0.9% 100 ML IVPB SCH (21:25)
[2017-01-14] MEDS: ceFAZolin 2 GM in SODIUM CHLORIDE 0.9% 100 ML IVPB SCH ×3 (03:17→14:23)
[2017-01-14] MEDS ORDERED: LEVOTHYROXINE 75 MCG TAB PO SCH (06:30)
[2017-01-14] MEDS ORDERED: PANTOPRAZOLE 40 MG TABLET PO SCH (07:30)
--- NOTE | 2017-01-14 07:57 | XR ---
EXAMINATION TYPE: XR chest 2V DATE OF EXAM: 01/14/2017 6:22 AM COMPARISON: 10/07/2016 HISTORY: Shortness of breath TECHNIQUE: Frontal and lateral views of the chest are obtained. FINDINGS: Scattered senescent parenchymal changes noted. Hyperinflation compatible with COPD. No evidence for infiltrate. No evidence for atelectasis. Heart size is stable. Mediastinal structures are stable and grossly unremarkable. No evidence for hilar prominence. Degenerative changes dorsal spine. IMPRESSION: 1. No evidence for acute pulmonary disease.
[2017-01-14] MEDS: CARVEDILOL 12.5 MG TAB PO SCH (08:24)
[2017-01-14] MEDS ORDERED: ASPIRIN 81 MG CHEW PO SCH (09:00)
[2017-01-14] MEDS ORDERED: ATORVASTATIN 80 MG TAB PO SCH (09:00)
[2017-01-14] MEDS ORDERED: CLOPIDOGREL 75 MG TAB PO SCH (09:00)
[2017-01-14] MEDS ORDERED: ISOSORBIDE MONONITRATE ER 30 MG TAB.ER.24H PO SCH (09:00)
[2017-01-14] MEDS ORDERED: LOSARTAN 25 MG TAB PO SCH (09:00)
[2017-01-14 11:49] VITALS: BP 145/67; PULSE 57; TEMP 97.6
== END 2017-01-14 15:53 | disposition home or self-care (01) ==
LOC: CATHEP 11:22 → 3OBS 16:30 → CATHEP 01-14 15:53
PROVIDERS: ATTEND Internal Medicine Clinical Cardiac Electrophysiology
DX: I25.5 Ischemic cardiomyopathy (principal); I47.2 Ventricular tachycardia; I49.5 Sick sinus syndrome; Z00.6 Encounter for examination for normal comparison and control in clinical research program; I25.10 Atherosclerotic heart disease of native coronary artery without angina pectoris; Z95.5 Presence of coronary angioplasty implant and graft; I13.0 Hypertensive heart and chronic kidney disease with heart failure and stage 1 through stage 4 chronic kidney disease, or unspecified chronic kidney disease; I50.22 Chronic systolic (congestive) heart failure; N18.3 Chronic kidney disease, stage 3 (moderate); E78.5 Hyperlipidemia, unspecified; K21.9 Gastro-esophageal reflux disease without esophagitis; E07.9 Disorder of thyroid, unspecified; I25.2 Old myocardial infarction; I69.398 Other sequelae of cerebral infarction; H53.8 Other visual disturbances; Z82.49 Family history of ischemic heart disease and other diseases of the circulatory system; Z79.02 Long term (current) use of antithrombotics/antiplatelets; Z79.82 Long term (current) use of aspirin; Z79.899 Other long term (current) drug therapy; Z88.2 Allergy status to sulfonamides
CPT/HCPCS: 93641; 33249; 80048; 85025; 71020; C1769 ×2; C1777; C1721; C1898; J2001; J0690 ×3; J0131; Q9967

== ENCOUNTER 2017-12-25 16:14 | Outpatient (CLI) | payer MEDICARE, OTHER ==
[~2017-12-25 16:14] MED LIST changes: -HYDROmorphone 1 MG/ML 1 ML SYRINGE IVP PRN; -LACTATED RINGERS 1,000 ML IV SCH; -MIDAZOLAM 2 MG/2 ML VIAL IV PRN; -SODIUM CHLORIDE 0.9% 1,000 ML IV SCH; +SODIUM CHLORIDE 0.9% 500 ML in EMPTY BAG 1 BAG IV PRN; -ceFAZolin 1,000 MG in SODIUM CHLORIDE 0.9% IRRIGATIO 250 ML IRRIGATION ONE; -ceFAZolin 2 GM in SODIUM CHLORIDE 0.9% 100 ML IVPB ONE
[2017-12-25 21:22] VITALS: RESP 18
[2017-12-25 21:59] VITALS: BP 122/71; PULSE 65; TEMP 97.6
== END 2017-12-25 22:05 | disposition home or self-care (01) ==
LOC: PEDOP 16:14
PROVIDERS: ATTEND Internal Medicine Hematology & Oncology
DX: D46.9 Myelodysplastic syndrome, unspecified (principal); D64.9 Anemia, unspecified
CPT/HCPCS: 36430; 86900; 86901; 86850; 86920; P9016; P9035

== ENCOUNTER 2018-01-17 12:09 | Inpatient (IN) | payer MEDICARE, OTHER ==
--- NOTE | 2018-01-17 12:27 | ED ---
Chest Pain HPI - General Chief Complaint: Chest Pain Stated Complaint: Chest pain Time Seen by Provider: 01/17/18 12:09 Source: patient, EMS, RN notes reviewed, old records reviewed Mode of arrival: EMS Limitations: no limitations - History of Present Illness Initial Comments: This is a 88-year-old male with a history of MDS with chronic anemia history of heart disease and thyroid disorder who states he had the onset of nonradiating midsternal chest pain today 89/10 severity generalized weakness no fevers chills nausea vomiting or other symptoms. No cough or phlegm production. No other modifying factors at this time he denies any blood per rectum the patient was given 324 mg aspirin plus nitroglycerin which he states really did not help the pain much MD Complaint: chest pain, other - Related Data Home Medications Medication Instructions Recorded Confirmed Omeprazole 40 mg PO DAILY 01/31/14 01/17/18 Levothyroxine Sodium [Synthroid] 75 mcg PO DAILY 01/09/17 01/17/18 Atorvastatin [Lipitor] 80 mg PO HS 10/13/17 01/17/18 Gabapentin [Neurontin] 600 mg PO BID 10/13/17 01/17/18 Aspirin 81 mg PO DAILY 01/17/18 01/17/18 Carvedilol [Coreg] 12.5 mg PO BID 01/17/18 01/17/18 Previous Rx's Medication Instructions Recorded Isosorbide Mononitrate ER [Imdur] 30 mg PO DAILY #30 tab.er.24h 10/10/16 Losartan [Cozaar] 25 mg PO DAILY #30 tab 10/10/16 Allergies Allergy/AdvReac Type Severity Reaction Status Date / Time amlodipine [From Zo] Allergy Unknown Verified 01/17/18 13:47 olmesartan [From Zo] Allergy Unknown Verified 01/17/18 13:47 Sulfa (Sulfonamide Allergy Rash/Hives Verified 01/17/18 13:47 Antibiotics) Review of Systems ROS Statement: Those systems with pertinent positive or pertinent negative responses have been documented in the HPI. ROS Other: All systems not noted in ROS Statement are negative. EKG Findings - EKG Results: EKG: interpreted by CRISTINA, sinus rhythm (Sinus rhythm with unifocal PVCs rate was 72. 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 Multiple blood transfusions d/t MDS. History of Any Multi-Drug Resistant Organisms: None Reported Past Surgical History: Heart Catheterization With Stent, Pacemaker Additional Past Surgical History / Comment(s): pilonidial cyst, one cardiac stent. DEFRIBRILATOR INSERTION. BONE MARROW BIOPSY. Past Anesthesia/Blood Transfusion Reactions: Motion Sickness Date of Last Stent Placement:: 09/2016 Type of Cardiac Device: Unknown Device Placement Date:: 08/2015 Past Psychological History: No Psychological Hx Reported Smoking Status: Never smoker - Past Family History Father Family Medical History: Deep Vein Thrombosis (DVT) Additional Family Medical History / Comment(s): Father was an alcoholic. Mother Family Medical History: Congestive Heart Failure (CHF) Additional Family Medical History / Comment(s): Mother had depression. General Exam - General Exam Comments Initial Comments: This is a well-developed well-nourished awake alert oriented 3 male Limitations: no limitations General appearance: alert, anxious, in distress Head exam: Present: atraumatic, normocephalic, normal inspection Eye exam: Present: normal appearance, PERRL, EOMI. Absent: scleral icterus, conjunctival injection, periorbital swelling ENT exam: Present: normal exam, mucous membranes moist Neck exam: Present: normal inspection. Absent: tenderness, meningismus, lymphadenopathy Respiratory exam: Present: normal lung sounds bilaterally, chest wall tenderness (3 mild tenderness palpation is unclear whether this decreased the patient's pain). Absent: respiratory distress, wheezes, rales, rhonchi, stridor Cardiovascular Exam: Present: regular rate, normal rhythm, normal heart sounds. Absent: systolic murmur, diastolic murmur, rubs, gallop, clicks GI/Abdominal exam: Present: soft, normal bowel sounds. Absent: distended, tenderness, guarding, rebound, rigid Extremities exam: Present: normal inspection, full ROM, normal capillary refill. Absent: tenderness, pedal edema, joint swelling, calf tenderness Back exam: Present: normal inspection Neurological exam: Present: alert, oriented X3, CN II-XII intact Psychiatric exam: Present: normal affect, normal mood Skin exam: Present: warm, dry, intact, normal color. 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 I did discuss findings with patient family also discuss the case with Dr. Montiel patient be admitted for IV transfusion and evaluation of the elevated troponin patient is not a candidate for platelet transfusion at this time. Critical Care Time Critical Care Time: Yes Critical Care Time: 31 minutes of critical care time which includes initial presentation with history physical labs x-ray discussed with paramedics upon arrival monitoring the run prior to arrival. Review of old charting discussion with the family and multiple family members as well as the patient. Discussion with the admitting physician and consult documentation above and admission orders Disposition Clinical Impression: Chest pain, Unstable angina pectoris, Elevated troponin I level, Myelodysplastic syndrome, Anemia, Thrombocytopenia, Neutropenia Disposition[facility] Condition: Stable Referrals: Donnie Montenegro MD [Primary Care Provider] - 1-2 days
[2018-01-17 12:30] LABS: Anisocytosis Slight; HCT 22.3 % (39.0-53.0); HGB 7.7 gm/dL (13.0-17.5); MCH 30.7 pg (25.0-35.0); MCHC 34.5 g/dL (31.0-37.0); MCV 88.8 fL (80.0-100.0); Mean Platelet Volume 10.4; RBC 2.51 m/uL (4.30-5.90); RDW 17.4 % (11.5-15.5)
--- NOTE | 2018-01-17 12:37 | XR ---
EXAMINATION TYPE: XR chest 2V DATE OF EXAM: 01/17/2018 HISTORY: cough. REFERENCE: Previous study dated 10/13/2017. FINDINGS: There is a bipolar pacemaker place on the left. The heart is enlarged. The lungs are clear. Pleural spaces are clear. IMPRESSION: CARDIOMEGALY.
[2018-01-17 12:39] LABS: Albumin 2.9 g/dL (3.5-5.0); Calcium 8.5 mg/dL (8.4-10.2); Magnesium 1.9 mg/dL (1.6-2.3); Platelet Count 4 k/uL (150-450); Potassium 4.6 mmol/L (3.5-5.1); Total Protein 5.5 g/dL (6.3-8.2); WBC 1.1 k/uL (3.8-10.6)
[2018-01-17 12:52] LABS: Creatine Kinase <20 U/L (55-170)
[2018-01-17 13:02] LABS: Creatine Kinase MB 0.4 ng/mL (0.0-2.4)
[2018-01-17 13:09] LABS: Poikilocytosis (M) Present
[2018-01-17 13:47] LABS: T4, Free (Free Thyroxine) 1.25 ng/dL (0.78-2.19)
[2018-01-17 15:07] LABS: Appearance,Urine Clear (Clear); Bilirubin,Urine Negative (Negative); Blood,Urine Negative (Negative); Color,Urine Yellow; Glucose,Urine (UA) Negative (Negative); Ketones,Urine Negative (Negative); Leukocyte Esterase,Urine Negative (Negative); Mucus,Urine Rare /hpf; Nitrite,Urine Negative (Negative); PH, Urine 5.5 (5.0-8.0); Protein,Urine 1+ (Negative); Specific Gravity,Urine 1.012 (1.001-1.035); WBC,Urine <1 /hpf (0-5)
[2018-01-17] MEDS ORDERED: NITROGLYCERIN SL TABS 0.4 MG TAB SUBLINGUAL PRN (15:40)
[2018-01-17 17:52] VITALS: BMI 24.7
[2018-01-17] MEDS: HYDROcodone/APAP 5-325MG 1 EACH TAB PO PRN ×2 (18:18→23:24)
[2018-01-17 18:52] LABS: Creatine Kinase <20 U/L (55-170)
[2018-01-17 19:06] LABS: Creatine Kinase MB 0.5 ng/mL (0.0-2.4); Troponin I <0.012 ng/mL (0.000-0.034)
[2018-01-17] MEDS ORDERED: GABAPENTIN 300 MG CAP PO SCH (21:00)
[2018-01-17] MEDS: ATORVASTATIN 80 MG TAB PO SCH (21:25)
[2018-01-17] MEDS: CARVEDILOL 12.5 MG TAB PO SCH (21:25)
[2018-01-18 00:24] LABS: Creatine Kinase <20 U/L (55-170)
[2018-01-18 00:37] LABS: Creatine Kinase MB 0.3 ng/mL (0.0-2.4); Troponin I <0.012 ng/mL (0.000-0.034)
[2018-01-18 02:32] VITALS: TEMP 98.9
[2018-01-18 04:21] LABS: Anisocytosis Slight; HCT 24.4 % (39.0-53.0); HGB 8.3 gm/dL (13.0-17.5); MCHC 33.9 g/dL (31.0-37.0); MCV 88.6 fL (80.0-100.0); Mean Platelet Volume 10.7; RBC 2.75 m/uL (4.30-5.90); RDW 16.7 % (11.5-15.5)
[2018-01-18 04:22] LABS: Platelet Count 3 k/uL (150-450); WBC 1.6 k/uL (3.8-10.6)
[2018-01-18 04:57] LABS: Band Neutrophils % 7 %; Blast Cells # (M) 0.02 k/uL (0); Eosinophils # (M) 0.02 k/uL (0-0.7); Lymphocytes # (M) 0.64 k/uL (1.0-4.8); Monocytes # (M) 0.37 k/uL (0-1.0); Neutrophils % (M) 28 %; Nucleated Red Blood Cells 0 /100 WBC (0-0); Total Cells Counted 200
[2018-01-18 05:10] LABS: Cholesterol 56 mg/dL (<200); HDL Cholesterol 14 mg/dL (40-60); LDL Cholesterol,Calculated 27 mg/dL (0-99); Triglycerides 76 mg/dL (<150)
[2018-01-18] MEDS: SODIUM CHLORIDE 0.9% 1,000 ML IV SCH ×2 (05:39→16:42)
[2018-01-18] MEDS: LEVOTHYROXINE 75 MCG TAB PO SCH (06:54)
[2018-01-18] MEDS: CARVEDILOL 12.5 MG TAB PO SCH ×2 (06:54→17:03)
[2018-01-18] MEDS: PANTOPRAZOLE 40 MG TABLET PO SCH (06:54)
[2018-01-18] MEDS: HYDROcodone/APAP 5-325MG 1 EACH TAB PO PRN ×4 (06:56→19:53)
[2018-01-18] MEDS ORDERED: ASPIRIN 81 MG PO SCH (09:00)
[2018-01-18] MEDS ORDERED: ISOSORBIDE MONONITRATE ER 30 MG TAB.ER.24H PO SCH (09:00)
[2018-01-18] MEDS ORDERED: LOSARTAN 25 MG TAB PO SCH (09:00)
--- NOTE | 2018-01-18 14:51 | P.HPIM ---
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 Montiel. Patient presented to the emergency room yesterday with worsening chest pain and shortness of breath. He said that his symptoms started on an off last week and is being getting progressively worse over the last 3 days. He describe general weakness all over his body. He is also describing worsening shortness of breath as he is unable to walk around the room without being short of breath. He also described chest pain that is heavy- like sensation in the middle of his chest and to the left chest. Patient has a defibrillator in the left upper chest that is nonpainful at this time. There is no radiation for his pain otherwise. No nausea or vomiting. No diaphoresis. Patient was evaluated in the emergency room and 12 leads EKG showed no acute ischemic changes. Initial troponin was slightly elevated but repeat troponin was normal. Case was discussed with his oil and gas specialist by ER physician and patient was transfused 2 units of blood PRBC for symptomatic anemia and a hemoglobin of 7.7 on presentation. His platelet count was 4000 but initial recommendation from hematology was not to transfuse. There is no evidence of ongoing bleed. Patient is still complaining of chest pain and this time. Review of Systems Review of system: 14 points review of systems were obtained and were negative except to what were mentioned in the HPI. 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 Multiple blood transfusions d/t MDS. History of Any Multi-Drug Resistant Organisms: None Reported Past Surgical History: Heart Catheterization With Stent, Pacemaker Additional Past Surgical History / Comment(s): pilonidial cyst, one cardiac stent. DEFRIBRILATOR INSERTION. BONE MARROW BIOPSY. Past Anesthesia/Blood Transfusion Reactions: Motion Sickness Date of Last Stent Placement:: 09/2016 Type of Cardiac Device: Unknown Device Placement Date:: 08/2015 Past Psychological History: No Psychological Hx Reported Additional Psychological History / Comment(s): . Smoking Status: Never smoker Past Alcohol Use History: None Reported Past Drug Use History: None Reported - Past Family History Father Family Medical History: Deep Vein Thrombosis (DVT) Additional Family Medical History / Comment(s): Father was an alcoholic. Mother Family Medical History: Congestive Heart Failure (CHF) Additional Family Medical History / Comment(s): Mother had depression. Medications and Allergies Home Medications Medication Instructions Recorded Confirmed Type Omeprazole 40 mg PO DAILY 01/31/14 01/17/18 History Isosorbide Mononitrate ER [Imdur] 30 mg PO DAILY #30 tab.er.24h 10/10/16 Rx Losartan [Cozaar] 25 mg PO DAILY #30 tab 10/10/16 01/17/18 Rx Levothyroxine Sodium [Synthroid] 75 mcg PO DAILY 01/09/17 01/17/18 History Atorvastatin [Lipitor] 80 mg PO HS 10/13/17 01/17/18 History Gabapentin [Neurontin] 600 mg PO BID 10/13/17 01/17/18 History Aspirin 81 mg PO DAILY 01/17/18 01/17/18 History Carvedilol [Coreg] 12.5 mg PO BID 01/17/18 01/17/18 History Allergies Allergy/AdvReac Type Severity Reaction Status Date / Time amlodipine [From Zo] Allergy Unknown Verified 01/17/18 13:47 olmesartan [From Zo] Allergy Unknown Verified 01/17/18 13:47 Sulfa (Sulfonamide Allergy Rash/Hives Verified 01/17/18 13:47 Antibiotics) Physical Exam Vitals: Vital Signs Temp Pulse Pulse Resp BP BP BP 01/18/18 13:10 58 L 18 100/48 01/18/18 09:35 53 L 17 99/47 88/50 01/18/18 08:00 65 18 01/18/18 04:00 98.9 F 62 18 105/62 01/18/18 02:31 98.9 F 66 18 107/58 01/18/18 00:35 97.8 F 64 18 95/47 01/18/18 00:05 98.3 F 71 18 102/60 01/17/18 23:55 98.9 F 69 18 108/52 01/17/18 23:21 98.3 F 60 20 135/68 01/17/18 23:20 98.3 F 60 20 135/68 05/12/18 23:19 98.3 F 60 18 135/68 01/17/18 21:08 97.6 F 57 L 18 102/57 01/17/18 20:38 98.2 F 61 18 104/51 01/17/18 20:28 98.2 F 62 18 99/58 01/17/18 20:26 98.2 F 64 18 99/57 01/17/18 20:20 98.2 F 64 18 99/57 01/17/18 16:40 97.6 F 62 16 117/56 01/17/18 15:54 56 L 18 122/58 Pulse Ox 01/18/18 13:10 99 01/18/18 09:35 98 01/18/18 08:00 01/18/18 04:00 97 01/18/18 02:31 96 01/18/18 00:35 96 01/18/18 00:05 98 01/17/18 23:55 97 01/17/18 23:21 95 01/17/18 23:20 95 01/17/18 23:19 95 01/17/18 21:08 98 01/17/18 20:38 97 01/17/18 20:28 98 01/17/18 20:26 97 01/17/18 20:20 97 01/17/18 16:40 99 01/17/18 15:54 97 Intake and Output 01/17/18 01/18/18 01/18/18 22:59 06:59 14:59 Intake Total 120 620 120 Balance 120 620 120 Intake: Oral 120 120 Blood Product 0 620 Rc As-1 Unit 310 [id number] Rc As-1 Unit 0 310 [id number] Other: Voiding Method Toilet Toilet Toilet # Voids 1 2 Weight 74 kg 74 kg General: The patient is awake and alert, in no distress Eye: there is normal conjunctiva bilaterally. Neck: The neck is supple, there is no JVD. Cardiovascular: Normal S1-S2, no S3-S4, no murmurs. Respiratory: Lungs clear to auscultation bilaterally Gastrointestinal: Abdomen is soft, nontender Musculoskeletal: There is no pedal edema. Neurological:. Speech is normal. Skin: Skin is warm and dry Results CBC & Chem 7: 01/18/18 04:11 01/17/18 12:17 Labs: Abnormal Lab Results - Last 24 Hours (Table) 01/17/18 01/17/18 01/17/18 Range/Units 12:51 15:00 18:17 WBC (3.8-10.6) k/uL RBC (4.30-5.90) m/uL Hgb (13.0-17.5) gm/dL Hct (39.0-53.0) % RDW (11.5-15.5) % Plt Count (150-450) k/uL Neutrophils # (Manual) (1.3-7.7) k/uL Lymphocytes # (Manual) (1.0-4.8) k/uL Blast Cells # (Man) (0) k/uL Total Creatine Kinase <20 L (55-170) U/L HDL Cholesterol (40-60) mg/dL Urine Protein 1+ H (Negative) Urine Mucus Rare H (None) /hpf Crossmatch See Detail 01/17/18 01/18/18 01/18/18 Range/Units 23:54 04:11 04:11 WBC 1.6 L* (3.8-10.6) k/uL RBC 2.75 L (4.30-5.90) m/uL Hgb 8.3 L (13.0-17.5) gm/dL Hct 24.4 L (39.0-53.0) % RDW 16.7 H (11.5-15.5) % Plt Count 3 L* (150-450) k/uL Neutrophils # (Manual) 0.50 L (1.3-7.7) k/uL Lymphocytes # (Manual) 0.64 L (1.0-4.8) k/uL Blast Cells # (Man) 0.02 H (0) k/uL Total Creatine Kinase <20 L (55-170) U/L HDL Cholesterol 14 L (40-60) mg/dL Urine Protein (Negative) Urine Mucus (None) /hpf Crossmatch Thrombosis Risk Factor Assmnt - Choose All That Apply Each Risk Factor Represents 3 Points: Age 75 years or older, Family history of DVT/PE Thrombosis Risk Factor Assessment Total Risk Factor Score: 6 Thrombosis Risk Factor Assessment Level: High Risk Assessment and Plan Assessment: 1. Chest pain: Atypical in nature. 12-lead EKG showed no acute ischemic changes. Initial troponin was slightly elevated but repeat troponin was normal. Chest x-ray showed evidence of cardiomegaly with no acute findings. I would consult cardiology for further evaluation. I would discontinue aspirin given significant thrombocytopenia. 2. Thrombocytopenia, secondary to underlying MDS. Patient was given 2 units of PRBC transfusion. I would order 1 unit of platelet transfusion today. Repeat CBC ordered. May consider G-CSF awaiting hematology evaluation 3. Myelodysplastic syndrome: Patient was unable to tolerate Revlimid. Further treatment plan to be discussed with hematology. 4. Hypotension, may be related to intravascular depletion. We'll discontinue Imdur and losartan. Continue gentle IV fluid hydration. 5. History of coronary artery disease: discontinue aspirin - I had a prolonged discussion with patient and his family about the necessity to discontinue aspirin given his profound thrombocytopenia - I had a prolonged discussion with patient and his family regarding goals of care. Patient would like to be DNR/DNI. Further goals of care to be discussed with his oil and gas specialist regarding plan of treatment.
[2018-01-18 15:48] VITALS: BP 105/52; PULSE 67
--- NOTE | 2018-01-18 16:09 | P.PN ---
Progress Note - Text Consult dictated Impression: 1- Chest pain, likely cardiac due to severe anemia 2- Pancytopenia 2nd to advancing MDS 3- MDS (Refractory anemia with excess Blasts), refractory to platelets transfusion Recommendations: 1- I had a long discussion with patient & all family 2- The patient requested comfort care only, which is reasonable 3- No further labs/X-Rays 4- No further transfusions 5- No Code, No CPR. 6- Consult Hospice, Re: Home hospice Answered all questions/concerns
[2018-01-18] MEDS: NEURONTIN 600MG PO SCH (17:02)
[2018-01-18] MEDS: ATORVASTATIN 80 MG TAB PO SCH (19:53)
[2018-01-18 20:45] VITALS: RESP 16
--- NOTE | 2018-01-18 23:05 | CONS ---
CONSULTATION DATE OF SERVICE: 01/18/2018. CHIEF COMPLAINT: Chest pain. HISTORY OF ILLNESS: Mr. Henning is an 88-year-old gentleman, well known to myself. The patient was diagnosed with a myelodysplastic syndrome with rapid progression. He failed to respond to hematopoietic growth factor support and recent bone marrow showed progressive anemia, but yet to be in acute leukemic phase. Unfortunately, the patient is almost total failure from hematopoietic hematopoiesis. Became transfusion-dependent, but then platelet transfusion refractory. He presented to the hospital with chest discomfort. The pain, nature, and distribution appears to be consistent with potential cardiac etiology, but was found to have severe anemia with hemoglobin of 6.6. He was given 2 units of packed red blood cells and his hemoglobin improved, and his pain is mostly subsided. He continues to have severe weakness. When seen today, the patient appears to be calm and he has requested comfort measures only. PAST MEDICAL HISTORY: 1. Myelodysplastic disease as stated above, rapidly progressive. 2. Prior history of CVA and TIA. 3. Osteoarthropathy. 4. Hypothyroidism. PAST SURGICAL HISTORY: PTCA and stent placement and pacemaker placement. CURRENT MEDICATIONS: Reviewed and listed in the electronic medical record. SOCIAL HISTORY: The patient is a lifetime nonsmoker. Denies any use of alcohol. PHYSICAL EXAMINATION: Kaleb is alert and oriented. Skin is warm and dry, pale with nonicteric hair distribution within normal for age and gender. Blood pressure was 100/48, pulse is 69 and regular, respiratory rate was 18, not labored. He was afebrile. No pathologic cervical, supraclavicular, infraclavicular or axillary lymphadenopathy. Trachea was in midline. Chest was clear with good air exchange bilaterally. Sounds are normal S1 and S2. There was no S3, rubs, or murmurs auscultated. Abdomen, liver and spleen were not clinically palpable. No masses, tenderness, or inguinal lymphadenopathy. Extremities appear unremarkable with mild generalized lower extremity edema. LABORATORY STUDIES: Reviewed and listed in the electronic medical record. IMPRESSION: 1. Chest pain, likely cardiac in etiology, likely triggered by severe anemia. 2. Advanced myelodysplastic syndrome. 3. Pancytopenia due to above, transfusion refractory. RECOMMENDATIONS: 1. I had a long discussion with the patient and all his family members at the bedside. Kaleb requested comfort care only, which is quite reasonable. 2. No further labs or x-rays advice. 3. The patient requests no further transfusion support, which is reasonable. 4. NO CODE STATUS AND NO CPR was ordered per patient's family's wishes, which is very reasonable. 5. Consult hospice for home hospice program. I answered all questions and concerns to the patient and family satisfaction. KLEBER / ELOISAN: [id number] /
[2018-01-19] MEDS: HYDROcodone/APAP 5-325MG 1 EACH TAB PO PRN ×4 (03:49→18:35)
[2018-01-19] MEDS: PANTOPRAZOLE 40 MG TABLET PO SCH (06:22)
[2018-01-19] MEDS: LEVOTHYROXINE 75 MCG TAB PO SCH (06:22)
[2018-01-19] MEDS: CARVEDILOL 12.5 MG TAB PO SCH ×2 (06:22→17:16)
--- NOTE | 2018-01-19 12:36 | P.PN ---
Subjective Progress Note Date: 01/19/18 This is a 88-year-old gentleman with complex past medical history noted below significant for MDS who has been transfusion dependent recently and following closely with Dr. Montiel. Patient presented to the emergency room yesterday with worsening chest pain and shortness of breath. He said that his symptoms started on an off last week and is being getting progressively worse over the last 3 days. He describe general weakness all over his body. He is also describing worsening shortness of breath as he is unable to walk around the room without being short of breath. He also described chest pain that is heavy- like sensation in the middle of his chest and to the left chest. Patient has a defibrillator in the left upper chest that is nonpainful at this time. There is no radiation for his pain otherwise. No nausea or vomiting. No diaphoresis. Patient was evaluated in the emergency room and 12 leads EKG showed no acute ischemic changes. Initial troponin was slightly elevated but repeat troponin was normal. Case was discussed with his construction or leak gang laborer by ER physician and patient was transfused 2 units of blood PRBC for symptomatic anemia and a hemoglobin of 7.7 on presentation. His platelet count was 4000 but initial recommendation from hematology was not to transfuse. There is no evidence of ongoing bleed. Patient is still complaining of chest pain and this time. 01/19/2018 patient will be opened up to hospice today. He is awaiting a bed at the hospice house. Pain is controlled. Denies any chest pain or shortness of breath. Denies any nausea or vomiting. Denies any bowel movement changes or urinary symptoms. Objective - Vital Signs Vital signs: Vital Signs Temp 98.9 F 01/18/18 04:00 Pulse 67 01/18/18 15:37 Resp 16 01/19/18 04:00 BP 105/52 01/18/18 15:37 Pulse Ox 97 01/18/18 15:37 Intake & Output 01/18/18 01/19/18 01/19/18 18:59 06:59 18:59 Intake Total 420 5 Balance 420 5 Weight 73.8 kg Intake: IV 5 .9 5 Oral 420 0 Other: Voiding Method Toilet Toilet # Voids 1 0 - Exam Head normocephalic Neck supple Lungs clear to auscultation bilaterally no wheezing or crackles Heart regular rate and rhythm S1-S2, no rub or gallop Abdomen is soft nontender nondistended positive bowel sounds no hepatosplenomegaly Extremities no edema Neuro alert and orientated to 3 Skin: Jaundice - Labs CBC & Chem 7: 01/18/18 04:11 01/17/18 12:17 Assessment and Plan Assessment: 1. Chest pain: Likely due to an acute type II [place] secondary to anemia. Atypical in nature. 12-lead EKG showed no acute ischemic changes. Initial troponin was slightly elevated but repeat troponin was normal. Chest x-ray showed evidence of cardiomegaly with no acute findings. Aspirin discontinued due to the thrombocytopenia 2. Thrombocytopenia, secondary to underlying MDS. Patient was given 2 units of PRBC transfusion. I would order 1 unit of platelet transfusion today. 3. Myelodysplastic syndrome: Patient was unable to tolerate Revlimid. Further treatment plan to be discussed with hematology. 4. Hypotension, may be related to intravascular depletion. Imdur and losartan discontinued 5. History of coronary artery disease: discontinue aspirin 6. Pancytopenia secondary to MDS 7. 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 Patient transfusion dependent. Did require 2 units of blood. Hemoglobin 7.7 Patient's overall condition is poor and guarded. He is currently a DO NOT RESUSCITATE CODE STATUS. He has not with the hospice nurse and they're planning to transition him to hospice care with [facility]. Patient would prefer to go to hospice house there is no bed available at this time. Anticipated transfer to hospice house possibly tomorrow
[2018-01-19] MEDS: SODIUM CHLORIDE 0.9% 1,000 ML IV SCH (14:50)
[2018-01-19] MEDS: NEURONTIN 600MG PO SCH (17:15)
[2018-01-19] MEDS: ATORVASTATIN 80 MG TAB PO SCH (20:25)
--- NOTE | 2018-01-20 10:27 | P.DS ---
Providers Date of admission: 01/17/18 15:43 Expected date of discharge: 01/20/18 Attending physician: Andrea Lyons Consults: 01/17/18 15:40 Consult Physician Routine Consulting Provider: Hong Montiel Consult Reason/Comments: Symptomatic anemia, mild dysplastic syndrome Do you want consulting provider notified?: Already Contacted 01/18/18 14:43 Consult Physician Routine Consulting Provider: Neva Justin Consult Reason/Comments: Chest pain Do you want consulting provider notified?: Yes Primary care physician: [facility] Course: Discharge diagnosis 1. Chest pain: Likely due to an acute type II [place] secondary to anemia. Atypical in nature. 12-lead EKG showed no acute ischemic changes. Initial troponin was slightly elevated but repeat troponin was normal. Chest x-ray showed evidence of cardiomegaly with no acute findings. Aspirin discontinued due to the thrombocytopenia 2. Thrombocytopenia, secondary to underlying MDS. Patient was given 2 units of PRBC transfusion and 1 unit of platelets 3. Myelodysplastic syndrome: Patient was unable to tolerate Revlimid. Further treatment plan to be discussed with hematology. 4. Hypotension, may be related to intravascular depletion. Imdur and losartan discontinued 5. History of coronary artery disease: discontinue aspirin 6. Pancytopenia secondary to MDS 7. 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 Patient transfusion dependent. Did require 2 units of blood. 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 Montiel. Patient presented to the emergency room yesterday with worsening chest pain and shortness of breath. He said that his symptoms started on an off last week and is being getting progressively worse over the last 3 days. He describe general weakness all over his body. He is also describing worsening shortness of breath as he is unable to walk around the room without being short of breath. He also described chest pain that is heavy- like sensation in the middle of his chest and to the left chest. Patient has a defibrillator in the left upper chest that is nonpainful at this time. There is no radiation for his pain otherwise. No nausea or vomiting. No diaphoresis. Patient was evaluated in the emergency room and 12 leads EKG showed no acute ischemic changes. Initial troponin was slightly elevated but repeat troponin was normal. Case was discussed with his biomedical engineering technologist by ER physician and patient was transfused 2 units of blood PRBC for symptomatic anemia and a hemoglobin of 7.7 on presentation. His platelet count was 4000 but initial recommendation from hematology was not to transfuse. There is no evidence of ongoing bleed. Patient is still complaining of chest pain and this time. Patient did get 2 units of blood and 1 unit of platelets during this admission. His overall prognosis was poor and guarded. Patient followed closely by oncology. Patient was diagnosed with myelodysplastic syndrome with rapid progression. Per oncology he failed to respond to hematopoietic growth factor support and recent bone marrow showed progressive anemia. Patient had almost total failure from hematopoietic hematopoiesis. She was also transfusion dependent but then became platelet transfusion refractory. Patient presented with chest pain, likely related to his severe anemia due to a type II [place]. Patient requested comfort care and hospice. Therefore, patient will be discharged and admitted to inpatient hospice with [facility]. The plan is to transfer patient to the hospice house when a bed is available. I performed an examination of the patient and discussed their management with the physician Dry House Attendant. I have reviewed the Physician Dry House Attendant's notes and agree with the documented findings and plan of care Patient Condition at Discharge: Stable Plan - Discharge Summary Discharge Rx Participant: No New Discharge Prescriptions: No Action Omeprazole 40 mg PO DAILY Isosorbide Mononitrate ER [Imdur] 30 mg PO DAILY #30 tab.er.24h Losartan [Cozaar] 25 mg PO DAILY #30 tab Levothyroxine Sodium [Synthroid] 75 mcg PO DAILY Atorvastatin [Lipitor] 80 mg PO HS Gabapentin [Neurontin] 600 mg PO BID Aspirin 81 mg PO DAILY Carvedilol [Coreg] 12.5 mg PO BID Discharge Medication List Omeprazole 40 mg PO DAILY 01/31/14 [History] Isosorbide Mononitrate ER [Imdur] 30 mg PO DAILY #30 tab.er.24h 10/10/16 [Rx] Losartan [Cozaar] 25 mg PO DAILY #30 tab 10/10/16 [Rx] Levothyroxine Sodium [Synthroid] 75 mcg PO DAILY 01/09/17 [History] Atorvastatin [Lipitor] 80 mg PO HS 10/13/17 [History] Gabapentin [Neurontin] 600 mg PO BID 10/13/17 [History] Aspirin 81 mg PO DAILY 01/17/18 [History] Carvedilol [Coreg] 12.5 mg PO BID 01/17/18 [History] Follow up Appointment(s)/Referral(s): Donnie Montenegro MD [Primary Care Provider] - 1-2 days [facility] Vis[facility] Nurse, [NON-STAFF] - 1 Week
== END 2018-01-19 20:33 | disposition hospice, inpatient (51) | DRG 281 ==
LOC: EC 12:09 → 6SEL 15:43 → 5MS5E 01-19 10:43
PROVIDERS: ADMIT Internal Medicine; ATTEND Internal Medicine
DX: I21.A1 Myocardial infarction type 2 (principal); D61.818 Other pancytopenia; E03.9 Hypothyroidism, unspecified; H91.90 Unspecified hearing loss, unspecified ear; I25.110 Atherosclerotic heart disease of native coronary artery with unstable angina pectoris; K21.9 Gastro-esophageal reflux disease without esophagitis; D46.20 Refractory anemia with excess of blasts, unspecified; G89.29 Other chronic pain; M19.90 Unspecified osteoarthritis, unspecified site; M48.00 Spinal stenosis, site unspecified; I95.9 Hypotension, unspecified; I25.10 Atherosclerotic heart disease of native coronary artery without angina pectoris; E86.9 Volume depletion, unspecified; I69.998 Other sequelae following unspecified cerebrovascular disease; H53.8 Other visual disturbances; Z51.5 Encounter for palliative care; Z66 Do not resuscitate; Z79.82 Long term (current) use of aspirin; Z79.899 Other long term (current) drug therapy; Z79.890 Hormone replacement therapy; Z88.2 Allergy status to sulfonamides; Z88.8 Allergy status to other drugs, medicaments and biological substances; Z95.5 Presence of coronary angioplasty implant and graft; Z95.0 Presence of cardiac pacemaker; Z82.49 Family history of ischemic heart disease and other diseases of the circulatory system; Z81.8 Family history of other mental and behavioral disorders; Z81.1 Family history of alcohol abuse and dependence
CPT/HCPCS: 36415; 36430; 71046; 80053; 80061; 81001; 82150; 82550; 82553; 83690; 83735; 84439; 84443; 84484; 85025; 86850; 86900; 86901; 86920; 93005; 99291

== ENCOUNTER 2018-01-19 20:37 | Inpatient (IN) | payer OTHER ==
[2018-01-19] MEDS ORDERED: MORPHINE ORAL SOL CONC 20 MG/ML BOTTLE PO PRN (20:54)
[2018-01-19] MEDS ORDERED: SENNOSIDES 8.6 MG TAB PO PRN (20:55)
[2018-01-19] MEDS ORDERED: BISACODYL 10 MG SUPP RECTAL PRN (20:56)
[2018-01-19] MEDS ORDERED: LORazepam 1 MG TAB PO PRN (20:57)
[2018-01-20] MEDS ORDERED: MORPHINE ORAL SOLN 10 MG/5 ML CUP PO PRN (05:38)
[2018-01-20] MEDS: MORPHINE CONC SOLN 10mg/0.5mL ORAL SYRG PO PRN ×3 (09:58→19:09)
--- NOTE | 2018-01-20 10:35 | P.HPIM ---
History of Present Illness H&P Date: 01/20/18 Chief Complaint: MDS and chest pain Mr. Henning is a 88-year-old gentleman who will be admitted to inpatient hospice with [facility]. He has a known past medical history of MDS. His overall prognosis was poor and guarded. Patient followed closely by oncology. Patient was diagnosed with myelodysplastic syndrome with rapid progression. Per oncology he failed to respond to hematopoietic growth factor support and recent bone marrow showed progressive anemia. Patient had almost total failure from hematopoietic hematopoiesis. He was also transfusion dependent but then became platelet transfusion refractory. Patient presented with chest pain, likely related to his severe anemia due to a type II NC. Patient requested comfort care and hospice. Therefore, patient will be discharged and admitted to inpatient hospice with [facility]. The plan is to transfer patient to the hospice house when a bed is available. Patient will be placed on hospice care with morphine and Ativan as needed for pain control her agitation. Patient is currently comfortable and pain is tolerable. 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 Multiple blood transfusions d/t MDS. History of Any Multi-Drug Resistant Organisms: None Reported Past Surgical History: Heart Catheterization With Stent, Pacemaker Additional Past Surgical History / Comment(s): pilonidial cyst, one cardiac stent. DEFRIBRILATOR INSERTION. BONE MARROW BIOPSY. Past Anesthesia/Blood Transfusion Reactions: Motion Sickness Date of Last Stent Placement:: 09/2016 Type of Cardiac Device: Unknown Device Placement Date:: 08/2015 Past Psychological History: No Psychological Hx Reported Additional Psychological History / Comment(s): . Smoking Status: Never smoker Past Alcohol Use History: None Reported Past Drug Use History: None Reported - Past Family History Father Family Medical History: Deep Vein Thrombosis (DVT) Additional Family Medical History / Comment(s): Father was an alcoholic. Mother Family Medical History: Congestive Heart Failure (CHF) Additional Family Medical History / Comment(s): Mother had depression. Medications and Allergies Home Medications Medication Instructions Recorded Confirmed Type Omeprazole 40 mg PO DAILY 01/31/14 01/19/18 History Isosorbide Mononitrate ER [Imdur] 30 mg PO DAILY #30 tab.er.24h 10/10/16 Rx Losartan [Cozaar] 25 mg PO DAILY #30 tab 10/10/16 01/19/18 Rx Levothyroxine Sodium [Synthroid] 75 mcg PO DAILY 01/09/17 01/19/18 History Atorvastatin [Lipitor] 80 mg PO HS 10/13/17 01/19/18 History Gabapentin [Neurontin] 600 mg PO BID 10/13/17 01/19/18 History Aspirin 81 mg PO DAILY 01/17/18 01/19/18 History Carvedilol [Coreg] 12.5 mg PO BID 01/17/18 01/19/18 History Allergies Allergy/AdvReac Type Severity Reaction Status Date / Time amlodipine [From Zo] Allergy Unknown Verified 01/19/18 21:44 olmesartan [From Zo] Allergy Unknown Verified 01/19/18 21:44 Sulfa (Sulfonamide Allergy Rash/Hives Verified 01/19/18 21:44 Antibiotics) Physical Exam Vitals: Intake and Output 01/19/18 01/20/18 01/20/18 22:59 06:59 14:59 Intake Total 150 Balance 150 Intake: Oral 150 Other: # Voids 1 1 Weight 73.8 kg 73.8 kg Head normocephalic Neck supple Lungs clear to auscultation bilaterally no wheezing or crackles Heart regular rate and rhythm S1-S2, no rub or gallop Abdomen is soft nontender nondistended positive bowel sounds no hepatosplenomegaly Extremities no edema Neuro alert and orientated to 3 Skin: Jaundice Assessment and Plan Assessment: 1. Myelodysplastic syndrome: Patient unable to tolerate Revlimid. Patient came transfusion dependent and then refractory to platelet transfusions. 2. Chest pain: Likely due to an acute type II NC secondary to anemia. Atypical in nature. 12-lead EKG showed no acute ischemic changes. Initial troponin was slightly elevated but repeat troponin was normal. Chest x-ray showed evidence of cardiomegaly with no acute findings. Aspirin discontinued due to the thrombocytopenia 3. Pancytopenia secondary to MDS 4. Coronary artery disease 5. 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 Continue with morphine and Ativan as needed for comfort. Anticipate discharge to hospice house possibly later today. Time with Patient: Greater than 30 (Greater than 50% of the total time spent in counseling and coordination of care. I performed an examination of the patient and discussed their management with the physician [employer] Tele[employer]eter. I have reviewed the Physician Outbound Telemarketer's notes and agree with the documented findings and plan of care)
== END 2018-01-20 19:16 | disposition hospice, inpatient (51) | DRG 951 ==
LOC: 5MS5E 20:37
PROVIDERS: ADMIT Internal Medicine; ATTEND Internal Medicine
DX: Z51.5 Encounter for palliative care (principal); I21.A1 Myocardial infarction type 2; D61.818 Other pancytopenia; D46.9 Myelodysplastic syndrome, unspecified; H91.90 Unspecified hearing loss, unspecified ear; I25.10 Atherosclerotic heart disease of native coronary artery without angina pectoris; I51.7 Cardiomegaly; K21.9 Gastro-esophageal reflux disease without esophagitis; E07.9 Disorder of thyroid, unspecified; G89.29 Other chronic pain; M19.90 Unspecified osteoarthritis, unspecified site; M48.00 Spinal stenosis, site unspecified; M79.671 Pain in right foot; M79.672 Pain in left foot; M54.9 Dorsalgia, unspecified; R45.1 Restlessness and agitation; Z79.82 Long term (current) use of aspirin; Z79.899 Other long term (current) drug therapy; Z95.5 Presence of coronary angioplasty implant and graft; Z88.2 Allergy status to sulfonamides; Z88.8 Allergy status to other drugs, medicaments and biological substances; I69.998 Other sequelae following unspecified cerebrovascular disease; Z81.1 Family history of alcohol abuse and dependence; Z81.8 Family history of other mental and behavioral disorders; Z82.49 Family history of ischemic heart disease and other diseases of the circulatory system